=== PATIENT | female | born 1985 | race Caucasian/White ===

== ENCOUNTER → 2018-10-24 | Outpatient (CLI) | payer OTHER ==
[~2018-10-24] MED LIST: ACEBUTCAFT PO; BIRTH CONTROL; CYCL10 PO; DOXY100 PO; FAMO20 PO; HYDACE5 PO; HYDMOR2 PO; LOPE2C PO; NAPR500 PO; OMEP20ER PO; ORTHOTRICYCLINE; OXYACE5T PO; PROACE100 PO; PROC5 PO; PROM25 PO; PROP10 PO; RANI150 PO; RXHYDMOR2 PO; RXTRAM50 PO; VICODIN
== END | disposition home or self-care (01) ==
LOC: LAB SHORT 17:27 → LAB 17:27
DX: R30.0 Dysuria (principal)
CPT/HCPCS: 87086

== ENCOUNTER → 2018-11-07 | Outpatient (CLI) | payer OTHER ==
[2018-11-09 15:06] LABS: HPV 16 Negative (Negative); HPV 18 Negative (Negative); HPV OTHER HR TYPES Negative (Negative)
== END | disposition home or self-care (01) ==
LOC: LAB SHORT 17:43 → LAB 17:43
PROVIDERS: Nurse Practitioner Family
DX: Z12.4 Encounter for screening for malignant neoplasm of cervix (principal); R30.0 Dysuria
CPT/HCPCS: 87086

== ENCOUNTER 2021-02-01 10:01 | Inpatient (IN) | payer OTHER ==
[~2021-02-01] VITALS: Ht 167.6 cm; Wt 137.0 kg
[2021-02-01 11:03] LABS: Hematocrit 43.1 % (33.0-51.0); Hemoglobin 13.4 g/dL (11.5-16.0); Mean Corpuscular HGB 24.9 pg (26.0-34.0); Mean Corpuscular HGB Conc 31.1 g/dL (31.5-36.5); Mean Corpuscular Volume 80 fL (80-100); Mean Platelet Volume 9.6 fL (9.1-12.4); Platelet Count 293 K/mm3 (150-400); RDW Coefficient Variation 13.5 % (11.7-14.2); Red Blood Cell Count 5.39 M/mm3 (3.80-5.20); White Blood Cell Count 5.62 K/mm3 (4.00-11.30)
[2021-02-01] MEDS ORDERED: Ventolin/Prove6.7 GM INH (11:24)
[2021-02-01 11:34] LABS: BAND PERCENT MAN 6 % (0-8); BASOPHILS PERCENT MAN 0 % (0-2); EOSINOPHILS PERCENT MAN 0 % (0-6); LYMPHOCYTES % ATYPICAL MANUAL 2 % (0-0); LYMPHOCYTES ABSOLUTE MAN 0.67 K/mm3 (0.84-5.20); LYMPHOCYTES PERCENT MAN 10 % (21-46); METAMYELOCYTE ABSOLUTE MAN 0.05 K/mm3 (0.00-0.00); METAMYELOCYTE PERCENT MAN 1 % (0-0); MONOCYTES PERCENT MAN 9 % (4-13); NEUTROPHILS ABSOLUTE MAN 4.38 K/mm3 (1.96-9.15); SEG NEUTROPHILS PERCENT MAN 72 % (41-73); TOTAL CELLS COUNTED 100
[2021-02-01 12:41] LABS: Alanine Aminotransfer (ALT/SGP 35 U/L (12-78); Albumin, Blood 3.1 g/dL (3.4-5.0); Albumin/Globulin Ratio 0.6 (0.8-1.8); Alk Phos 83 U/L (50-136); Anion Gap 4 mmol/L (6-16); Aspartate Aminotrans (AST/SGOT 48 U/L (12-37); Bilirubin, Total 0.2 mg/dL (0.1-1.0); Blood Urea Nitrogen 12 mg/dL (8-24); Bun/Creatinine Ratio 16.5 (12.0-20.0); CO2, Blood 30 mmol/L (21-32); Calcium, Blood 8.6 mg/dL (8.5-10.1); Chloride, Blood 104 mmol/L (98-108); Creatinine, Blood 0.73 mg/dL (0.40-1.00); Globulin, Blood 4.8 g/dL (2.2-4.0); Glomerular Filtration Rate >60 (60-); Glucose, Blood 115 mg/dL (70-99); Potassium, Blood 3.6 mmol/L (3.5-5.5); Sodium, Blood 138 mmol/L (136-145); Total Protein, Blood 7.9 g/dL (6.4-8.2); Troponin I <0.015 ng/mL (0.000-0.040)
[2021-02-02] MEDS ORDERED: IBUP800 PO (01:43)
[2021-02-02] MEDS ORDERED: Guaifenesin Wit10 ML PO (01:45)
[2021-02-02 05:20] LABS: BASOPHILS ABSOLUTE AUTO 0.01 K/mm3 (0.00-0.23); BASOPHILS PERCENT AUTO 0 % (0-2); EOSINOPHILS PERCENT AUTO 0 % (0-6); Hematocrit 37.4 % (33.0-51.0); Hemoglobin 11.7 g/dL (11.5-16.0); Mean Corpuscular HGB 25.5 pg (26.0-34.0); Mean Corpuscular HGB Conc 31.3 g/dL (31.5-36.5); Mean Corpuscular Volume 82 fL (80-100); Mean Platelet Volume 9.4 fL (9.1-12.4); Platelet Count 244 K/mm3 (150-400); RDW Coefficient Variation 13.7 % (11.7-14.2); Red Blood Cell Count 4.59 M/mm3 (3.80-5.20); White Blood Cell Count 4.33 K/mm3 (4.00-11.30)
[2021-02-02 05:42] LABS: Alanine Aminotransfer (ALT/SGP 38 U/L (12-78); Albumin, Blood 2.6 g/dL (3.4-5.0); Albumin/Globulin Ratio 0.6 (0.8-1.8); Alk Phos 70 U/L (50-136); Anion Gap 3 mmol/L (6-16); Aspartate Aminotrans (AST/SGOT 38 U/L (12-37); Bilirubin, Total 0.2 mg/dL (0.1-1.0); Blood Urea Nitrogen 16 mg/dL (8-24); Bun/Creatinine Ratio 23.3 (12.0-20.0); CO2, Blood 33 mmol/L (21-32); Calcium, Blood 8.1 mg/dL (8.5-10.1); Chloride, Blood 104 mmol/L (98-108); Creatinine, Blood 0.69 mg/dL (0.40-1.00); Globulin, Blood 4.3 g/dL (2.2-4.0); Glomerular Filtration Rate >60 (60-); Glucose, Blood 109 mg/dL (70-99); Magnesium, Blood 2.2 mg/dL (1.6-2.4); Potassium, Blood 3.6 mmol/L (3.5-5.5); Sodium, Blood 140 mmol/L (136-145); Total Protein, Blood 6.9 g/dL (6.4-8.2)
[2021-02-02 05:52] LABS: IMMATURE GRAN ABSOLUTE AUTO 0.01 K/mm3 (0.00-0.10); IMMATURE GRAN PERCENT AUTO 0 % (0-1); LYMPHOCYTES ABSOLUTE AUTO 1.13 K/mm3 (0.84-5.20); LYMPHOCYTES PERCENT AUTO 26 % (21-46); MONOCYTES ABSOLUTE AUTO 0.47 K/mm3 (0.16-1.47); MONOCYTES PERCENT AUTO 11 % (4-13); NEUTROPHILS ABSOLUTE AUTO 2.71 K/mm3 (1.96-9.15); NEUTROPHILS PERCENT AUTO 63 % (41-73)
--- NOTE | 2021-02-02 06:40 | NUR ---
SHIFT SUMMARY- PT. NEW ADMIT FROM ED. COVID POS, A&OX4, SBA TO BSC. PT. ON 2L NC, SATS WNL. C/O JAIME AND NA DURING THE NIGHT, MEDICATED PER EMAR WITH GOOD EFFECT. PT. RESTED QUIETLY T/O THE NIGHT, NO APPARENT DISTRESS NOTED. CALL LIGHT WITHIN REACH AND SIDE RAILS UPX2. WILL CONT TO MONITOR.
--- NOTE | 2021-02-02 16:40 | NUR ---
Shift Summary A/Ox4, pleasant and cooperative with care. O2 needs increased from 2L at start of shift to 4L, maintaining between 89-92%. Desats to 87-88% with activity to bedside commode. C/O back pain from sciatica, reports was prescribed oxycodone but did not have chance to pickle cutter from pharmacy. Discussed with Dr. Turner, order received. Medicated for generalized achy pain and back pain per EMAR. Poor appetite. Calls for needs appropriately. LR @ 75. S/P day 2 of remdesevir. Breathing unlabored at this time. WCTM.
--- NOTE | 2021-02-03 03:24 | NUR ---
PT DESATURATED PT'S O2 SAT DROPPED TO MID 80'S %. SHE WAS NOT MOVING OR DOING ANY ACTIVITY. I DID CALL RESPIRATORY THERAPY FOR ASSISTANCE. AT 10 LPM HIGH FLOW O2, SHE IS MAINTAINING 91% SATURATION.
--- NOTE | 2021-02-03 04:12 | NUR ---
SHIFT SUMMARY ADMITTED FOR COVID+. FULL CODE. SHE DESATURATED ONE TIME THIS SHIFT, SEE PREVIOUS NOTE. SHE IS NOW ON 10 LPM HIGH FLOW O2 VIA NC. SHE STATES SHE HAS CHRONIC BACK PAIN/SCIATICA, AND SHE ALSO STATES THAT COVID HAS MADE HER HURT "EVERYWHERE". SHE HAS BEEN RUNNING LOW GRADE FEVERS THIS SHIFT AND THE PREVIOUS SHIFT. REMDESIVIR AND DECADRON ARE SCHEDULED. TELEMETRY: NSR @ 82 BPM. LR INFUSING @ 75 ML/HR. SHE IS A&O X4. 1 ASSIST TO BSC, BUT SHE IS REFUSING TO GET UP THIS SHIFT. 1 EPISODE OF URINE INCONTINENCE THIS SHIFT (DUE TO COUGHING). PO PAIN MEDICATION AVAILABLE Q 6, I DID MEDICATE HER FOR PAIN THIS SHIFT.
[2021-02-03 08:50] LABS: C-REACTIVE PROTEIN, EXT RANGE 3.31 mg/dL (0.000-0.300)
--- NOTE | 2021-02-03 16:34 | NUR ---
PT CONT TO STRUGGLE MAINTAINGING SATS ABOVE 90 TODAY. RT IN MX TIMES TO INCREASE O2, STARTED ON AIRVOW AND THEN BIPAIP. PT HAS BEEN COOPERATIVE WITH ADL'S AND WORKING WITH RT TO COUGH AND DEEP BREATH, CHANGE POSITIONS FREQUENTLY AND BEEN UP AND DOWN TO BSC IND TODAY. PT CONT TO DESAT INTO LOW 80'S FREQUENTLY AND C/O INCREASED SOB. MD NOTIFIED AND ORDERS RECIEVED TO TRANSFER PT TO ICU. IS AT BEDSIDE.
[2021-02-03 17:04] LABS: PCO2 Arterial 54 mmHg (35-45); PO2 Arterial 59.2 mmHg (80-100); pH Blood Arterial 7.43 (7.35-7.45)
--- NOTE | 2021-02-03 17:36 | NUR ---
SHIFT SUMMARY- PT CONT TO STRUGGLE MAINTAINING O2 SATURATIONS >90. RT IN MX TIMES TODAY TO ASSESS AND ASSIST. PT MOVED FROM 10L HIGH FLOW 02 VIA N/C TO 15L NRB, TO AIRVO MAX 02 WITH SATS REMAINING IN 80'S AND DROPPING FREQUENTLY. RT THEN PLACED PT ON BIPAP. PT WAS COOPERATING T/O THE DAY WITH ADL'S, COUGH AND DEEP BREATHING EXCERSIZE AND GETTING UP TO BSC WITH SAT DROPPING TO LOW 80'S. PT DID START COUGHING UP THICK BLOOD TINGED SECRETIONS AND MD WAS NOTIFIED. IV ABX GIVEN AND SPUTUM SAMPLE REQUESTED AND SAMPLE CUP PROVIDED TO PT FOR COLLECTION. PT C/O 9/10 HEADACHE THAT DID IMPROVE SLIGHTLY WITH PRN PAIN MEDS. PT CONT TO C/O SOB AND ATTEMPTING REPOSITIONING FREQUENTLY. PRONE POSITION SEEMED TO HELP MOST WITH SATS BUT PT DID NOT TOLERATED FOR VERY LONG. UPDATED AND NEW ORDERS REVIEVED TO TRANSFER PT TO ICU WHEN BED AVAILABLE FOR RESPIRATORY SUPPORT. PT'S WAS REQUESTED BY MD TO SIT WITH PT AT BEDSIDE FOR ENCOURAGEMENT AND COMFORT. NOTIFIED THAT BED AVAILABLE IN ICU FOR PT AND PLANS TO TRANSFER TO ICU-3 WHEN ROOM CLEANED AND REPORT CALLED.
--- NOTE | 2021-02-03 18:04 | NUR ---
REPORT CALLED TO KEVIN CAGLE IN ICU, WAITING FOR RM TO BE CLEANED.
--- NOTE | 2021-02-03 20:24 | NUR ---
ASSUMED CARE/ARRIVED TO ICU3 PATIENT ARRIVED FROM MEDICAL FLOOR TO ICU3 WITH BIPAP IN PLACE AT 50LPM 90% FIO2. CELL PHONE AND VENETIAN BLIND WASHER ARE WITH PATIENT AND TWO BAGS OF PERSONAL BELONGINGS. CHEN FROM PREVIOUS ROOM WERE BROUGHT DOWN AND FAMILY WERE NOTFIED TO PICK THOSE UP. 20G IV PATENT AND SL TO RT AC; UPON ARRIVAL 18G IV STARTED TO LT FOREARM. PATIENT IS A&O X 4 AND ASKS APPROPRIATE QUESTIONS REGARDING CARE. PATIENT IS CONTINENT OF URINE WITH USE OF BEDPAN. EDUCATED ON BED CONTROLS AND CALL LIGHT. WILL CONTINUE TO MONITOR.
--- NOTE | 2021-02-04 00:43 | NUR ---
CALL TO MD CALL TO DR ZIMMERMAN REGARDING SPO2 DOWN TO MID 80's. PT C/O NAUSEA, MED WITH ZOFRAN, BUT CONT TO HAVE NAUSEA. UNABLE TO USE BIPAP DUE TO NAUSEA. PT C/O RIGHT LOWER QUAD ABD PAIN. RECEIVED ORDER FOR FENTANYL AND PRECEDEX GTT. RT AT BEDSIDE PT ON NRB AT 15 LITERS.
[2021-02-04 01:12] LABS: Source, Urine Catheter
[2021-02-04 01:22] LABS: Bilirubin, Urine Neg (Neg); Blood, Urine 1+ (Neg); Glucose Qualitative, Urine Neg (Neg); Ketones, Urine 3+ (Neg); Leukocyte Esterase, Urine Neg (Neg); Nitrite, Urine Neg (Neg); Protein, Urine 2+ (Neg); Specific Gravity, Urine 1.025 (1.003-1.022); Urobilinogen, Urine NORM (Normal)
[2021-02-04 01:30] LABS: Amorphous Light (0-Heavy); Appearance, Urine Hazy (Clear); Bacteria Few /hpf; Color, Urine Yellow (P-Yellow); Mucus Mod (0-Heavy); Red Blood Cells, Urine 0-2 /hpf (0-2); Squamous Epithelial Cells Rare /hpf (Few)
[2021-02-04 03:55] LABS: BASOPHILS ABSOLUTE AUTO 0.01 K/mm3 (0.00-0.23); BASOPHILS PERCENT AUTO 0 % (0-2); EOSINOPHILS PERCENT AUTO 0 % (0-6); Hematocrit 37.5 % (33.0-51.0); Hemoglobin 11.6 g/dL (11.5-16.0); IMMATURE GRAN ABSOLUTE AUTO 0.04 K/mm3 (0.00-0.10); IMMATURE GRAN PERCENT AUTO 1 % (0-1); LYMPHOCYTES ABSOLUTE AUTO 1.17 K/mm3 (0.84-5.20); LYMPHOCYTES PERCENT AUTO 20 % (21-46); MONOCYTES ABSOLUTE AUTO 0.37 K/mm3 (0.16-1.47); MONOCYTES PERCENT AUTO 6 % (4-13); Mean Corpuscular HGB Conc 30.9 g/dL (31.5-36.5); Mean Corpuscular Volume 81 fL (80-100); Mean Platelet Volume 9.2 fL (9.1-12.4); NEUTROPHILS ABSOLUTE AUTO 4.38 K/mm3 (1.96-9.15); NEUTROPHILS PERCENT AUTO 73 % (41-73); Platelet Count 268 K/mm3 (150-400); RDW Coefficient Variation 13.5 % (11.7-14.2); RDW Standard Deviation 39.4 fL (35.1-46.3); Red Blood Cell Count 4.64 M/mm3 (3.80-5.20); White Blood Cell Count 5.97 K/mm3 (4.00-11.30)
[2021-02-04 04:19] LABS: Albumin, Blood 2.4 g/dL (3.4-5.0); Anion Gap 4 mmol/L (6-16); Blood Urea Nitrogen 12 mg/dL (8-24); Bun/Creatinine Ratio 20.5 (12.0-20.0); CO2, Blood 34 mmol/L (21-32); Calcium, Blood 8.6 mg/dL (8.5-10.1); Chloride, Blood 99 mmol/L (98-108); Creatinine, Blood 0.58 mg/dL (0.40-1.00); Glomerular Filtration Rate >60 (60-); Glucose, Blood 114 mg/dL (70-99); Magnesium, Blood 2.2 mg/dL (1.6-2.4); Phosphorus, Blood 3.1 mg/dL (2.5-4.9); Potassium, Blood 3.2 mmol/L (3.5-5.5); Sodium, Blood 137 mmol/L (136-145)
--- NOTE | 2021-02-04 06:05 | NUR ---
SHIFT SUMMARY PATIENT ARRIVED TO ICU ON AIRVO AND TOLERATED WELL UNTIL REPOSITIONED ONTO HER RT SIDE CAUSING HER TO DESAT INTO THE 80'S UNTIL PLACED ON CPAP. PATIENT REMAINED ON BIPAP THROUGHOUT THE NIGHT WITH GRADUAL WEAN OF FIO2 FROM 100% TO 80% AND SPO2 >95%; PRESSURE MAINTAINED AT 14. PATIENT EXPERIENCED NAUSEA AND RLQ PN NOT RELIEVED BY REGLAN OR ZOFRAN IV; STARTED PRECEDEX GTT @ 0.4MCG/KG/HR AND FENTANYL FOR PAIN. PATIENT TOLERATED WELL AND SLEPT FOR MOST OF THE NIGHT EXCEPT FOR WHEN PAIN OR NAUSEA BEGAN TO INCREASE. PATIENT MADE APPROPRIATE USE OF THE CALL LIGHT TO MAKE NEEDS KNOWN. D/T INCREASED WEAKNESS AND DESATS WITH REPOSITIONING, TEMP PISANO PLACED; PATENT AND DRAINING TO GRAVITY. WILL CONTINUE TO MONITOR UNTIL REPORT GIVEN TO ONCOMING RN.
--- NOTE | 2021-02-04 07:30 | NUR ---
ASSUMED CARE: PT RESTING WITH CPAP AT 14 AND FIO2 80%. PRECEDEX GTT AT 0.4 MCG. PT ALERT AND ORIENTED, COOPERATIVE. PISANO CATH IN PLACE WITH CLEAR YELLOW URINE. CALL LIGHT IN REACH. NO ACUTE NEEDS OR CONCERNS AT THIS TIME.
--- NOTE | 2021-02-04 10:37 | NUR ---
PT'S RESPIRATIONS ARE IN 30S TO 40S ON CPAP. RT ADJUSTED SETTINGS TO 12/6 AND 80% FIO2. HAS BEEN CONTACTED AND GIVEN UPDATE ON STATUS. PUBLIC WORKS LABORER APPROVED TO COME VISIT EARLY GIVEN CIRCUMSTANCES.
--- NOTE | 2021-02-04 11:17 | NUR ---
SPOKE WITH DR ZIMMERMAN REGARDING PT. AWARE THAT WE HAVE SWITCHED PT TO BIPAP AND SHE IS STILL WORKING HARD WITH RESPIRATIONS IN 30S TO 40S. DR INSTRUCTED RT TO INCREASE PRESSURE. HAD DISCUSSION WITH PT'S REGARDING PROGNOSIS AND STATED THAT IT IS LIKELY WE WILL HAVE TO INTUBATE HER. ASKED ABOUT IVERMECTIN AND EXPLAINED HIS THOUGHTS ON THIS. PT'S AT BEDSIDE WITH LIFE ENRICHMENT ASSISTANT AT THIS TIME.
--- NOTE | 2021-02-04 11:56 | NUR ---
pt anxious and nauseated from headache unable to maintain sats. Huaband at bedside and is struggling with plan of care. plan is to intubate. will follow for symptom managment and potential for long hauler care in future with her asthma nd high bmi.
--- NOTE | 2021-02-04 12:30 | NUR ---
PT'S AT BEDSIDE SPEAKING WITH SUPERVISOR WOOD ROOM. HE WANTED TO KNOW IF OTHER MEDS COULD BE USED AND WANTED TO TRY THOSE BEFORE WE INTUBATE. EXPLAINED TO HIM WITH PT'S HEMODYNAMICS AND WORK OF BREATHING, PT PROBABLY DID NOT HAVE THAT KIND OF TIME. PT WAS BREATHING 40S/MINUTE, SAT IN 80S AND FIO2 WAS AT 100% WITH BIPAP OF 16/8. PT'S SPOKE WITH , GAVE HER A HUG AND STEPPED ASIDE FOR STAFF TO START INTUBATION. AT 12O2 PT WAS GIVEN 50MG PROPOFOL FOR SEDATION. ANOTHER 50MG WAS GIVEN AT 1203. 100MG SUCCINYLCHOLINE GIVEN AT 1204 FOR PARALYTIC. ANOTHER 50MG PROPOFOL GIVEN AFTER THIS. INTUBATION COMPLETED AT 1205 WITH A 8.0 TUBE, 24 AT TEETH. PROPOFOL GTT STARTED AT 40MCG. PT CONTINUED TO BE COUGHING AGAINST VENT AND 100MG SUCC GIVEN. PT NOT MAINTAINING SATURATION, SAT 56%, BAGGING. BP LOW WITH SYSTOLIC IN 70S SO BOLUS OF NS GIVEN. OG TUBE PLACED WITH GLIDOSCOPE ASSISTANCE. PT CONTINUES TO STRUGGLE AGAINST VENT SO 100 MCG FENTANYL AND 2MG ATIVAN GIVEN. AT 1221 PT WAS 82% AND BAGGING. PT'S HR BECAME TACYCARDIC IN THE 150S. ORDERED NIMBEX GTT TO BE STARTED. RT AT BEDSIDE ADJUSTING VENT SETTINGS. COUGHING AGAINST VENT SO ANOTHER 50MG PROPOFOL GIVEN.
[2021-02-04 12:50] LABS: PCO2 Arterial 56.4 mmHg (35-45); PO2 Arterial 62.1 mmHg (80-100); pH Blood Arterial 7.38 (7.35-7.45)
--- NOTE | 2021-02-04 13:15 | NUR ---
Patient is lying in bed and struggling to breath. Her SO, Jacky is bedside and is angry he raises his voice and states his frustration about a certain medication not being given. Jacky states that he has a relative lodged at another hospital and was administered this certain medication and showed improvement. He talks about calling an ambulance and having her transferred to another facility who will allow this medication. I provide therapeutic listening and provide Jacky with options. I provide prayer for the patient as well. KEVIN Dominguez, Dr. Mondragon and myself calm Jacky down and he decides intubation is permissible. I stay with patient and Jacky while intubation is being installed providing a calming presence, distracting peaceful conversation and companionship. Jacky exits the rm when intubation is complete. I will continue to remain available to patient and family.
--- NOTE | 2021-02-04 15:30 | NUR ---
SUPERVISOR LEAF SPRING REPAIR AT BEDSIDE PLACING PICC LINE. PICC LINE CLOTTED OFF TWICE BUT WAS EVENTUALLY SUCCESSFUL WITH XRAY CONFIRMATION. DISCUSSED WITH DR ZIMMERMAN PT'S CLOTTING WELL DURING INTUBATION PT'S NOTED PT TO BE BLEEDING FROM TORI AREA. UPON FURTHER EXAMINATION, THIS APPEARED TO BE VAGINAL. STATES SHE HAD MENSES AT BEGINNING OF MONTH. RT NOTED BLOODY SPUTUM WITH SUCTION. DR ZIMMERMAN AND DEMOND AWARE OF THIS AND ORDERING COAGULATION STUDIES. PT'S HR REMAINS INCREASED AND BLOOD PRESSURE ELEVATED. DISCUSSED WITH DR ZIMMERMAN WHO ORDERED FENTANYL BOLUS AND FENTANYL GTT. PT PRONED WITH RT AND MULTIPLE STAFF ASSISTANCE AT 1500. PT NOW PRONED WITH VENT SETTINGS AC 24/450/15/80%. PRECEDEX GTT AT 1.4MCG/KG. PROPOFOL AT 60MCG/KG. FENTANYL GTT AT 50MCG/HR. BIS MONITOR READING LOW 30S. TOF 4/4. LR RUNNING AT 150/HR. OG IN PLACE WITH BILE AND CLAMPED. RESTRAINTS OFF. NO ACUTE NEEDS AT THIS TIME.
--- NOTE | 2021-02-04 18:45 | NUR ---
SHIFT SUMMARY: PT INTUBATED AND SEDATED. VENT SETTINGS AC 24/450/15/60%. PROPOFOL GTT AT 50MCG/KG. NIMBEX AT 1MCG/KG. FENTANYL GTT AT 50MCG/HR. BIS MONITOR BETWEEN 30 AND 40. TOF 4/4. PRONED AT THIS TIME. AWARE OF PT'S STATUS. PT'S MOTHER HAS BEEN UPDATED WELL. PISANO CATH IN PLACE AND OG TUBE CLAMPED. NO ACUTE NEEDS AT THIS TIME.
--- NOTE | 2021-02-04 23:20 | NUR ---
[facility] PATIENT LYING IN BED PRONED; INTUBATED AND SEDATED ON PROPOFOL @ 50MCG/KG/MIN WITH NIMBEX INF @ 1MCG/KG/MIN; NS @ 20ML/HR, FENTANYL GTT @ 50MCG/HR, AND LR @ 150ML/HR. PATIENT IS TOLERATING VENT WELL ON AC/VC 24/450/15/60% WITH SPO2 > 90%. OGT IN PLACE AND CLAMPED WITH GREEN DRAINAGE IN TUBING. PRECEDEX IS OFF AND NOT AT BEDSIDE AT THIS TIME. WILL CONTINUE TO MONITOR THROUGHOUT SHIFT.
[2021-02-05 04:13] LABS: BASOPHILS PERCENT AUTO 0 % (0-2); EOSINOPHILS PERCENT AUTO 0 % (0-6); Hematocrit 30.9 % (33.0-51.0); IMMATURE GRAN ABSOLUTE AUTO 0.06 K/mm3 (0.00-0.10); IMMATURE GRAN PERCENT AUTO 1 % (0-1); LYMPHOCYTES ABSOLUTE AUTO 0.93 K/mm3 (0.84-5.20); LYMPHOCYTES PERCENT AUTO 13 % (21-46); MONOCYTES ABSOLUTE AUTO 0.45 K/mm3 (0.16-1.47); MONOCYTES PERCENT AUTO 6 % (4-13); Mean Corpuscular HGB 25.4 pg (26.0-34.0); Mean Corpuscular HGB Conc 32.4 g/dL (31.5-36.5); Mean Corpuscular Volume 79 fL (80-100); Mean Platelet Volume 9.4 fL (9.1-12.4); NEUTROPHILS ABSOLUTE AUTO 5.76 K/mm3 (1.96-9.15); NEUTROPHILS PERCENT AUTO 80 % (41-73); Platelet Count 302 K/mm3 (150-400); RDW Coefficient Variation 13.3 % (11.7-14.2); RDW Standard Deviation 38.5 fL (35.1-46.3); Red Blood Cell Count 3.93 M/mm3 (3.80-5.20)
[2021-02-05 04:30] LABS: Anion Gap 6 mmol/L (6-16); Blood Urea Nitrogen 10 mg/dL (8-24); Bun/Creatinine Ratio 16.9 (12.0-20.0); CO2, Blood 31 mmol/L (21-32); Calcium, Blood 8.1 mg/dL (8.5-10.1); Chloride, Blood 103 mmol/L (98-108); Creatinine, Blood 0.59 mg/dL (0.40-1.00); Glomerular Filtration Rate >60 (60-); Glucose, Blood 128 mg/dL (70-99); International Normalized Ratio 1.08; Magnesium, Blood 2.4 mg/dL (1.6-2.4); Prothrombin Time Results 11.6 Sec (9.7-11.5); Sodium, Blood 140 mmol/L (136-145)
[2021-02-05 04:44] LABS: PCO2 Arterial 37.8 mmHg (35-45); PO2 Arterial 66.3 mmHg (80-100); pH Blood Arterial 7.54 (7.35-7.45)
--- NOTE | 2021-02-05 06:12 | NUR ---
SHIFT SUMMARY PATIENT REMAINED PRONED THROUGHOUT SHIFT; INTUBATED AND SEDATED WITH PROPOFOL @ 50MCG/KG/MIN, NIMBEX @ 2MCG/KG/MIN, AND FENTANYL GTT 50MCG/HR. LR INF @ 150ML/HR AND NS @ 20ML/HR. PATIENT TOLERATED VENT WELL ON VC 24/450/15/45% WITH SPO2>90%. TEMP PISANO PATENT AND DRAINING. TEMP DECREASED FROM 102.2 TO 99'SF. IV TO RT AC PATENT AND SL. AM LABS SHOWED LOW POTASSIUM AND PHOS; KPHOS STARTED AND AWAITING NAPHOS FROM PHARMACY. TOLERATED Q2H TURNS WELL.
--- NOTE | 2021-02-05 07:30 | NUR ---
ASSUMED CARE: PT INTUBATED, SEDATED AND PARALYZED. PROPOFOL AT 50MCG/KG. NIMBEX AT 2MCG/KG. TOF 0/4. BIS 40-60. VENT SETTINGS AC 24/450/15/40%. OG IN PLACE AND CLAMPED WITH BROWN/GREEN DRAINAGE. PISANO IN PLACE WITH CLEAR YELLOW DRAINAGE. PLAN IS TO SUPINATE PT WHEN STAFF AVAILABLE. [facility] PLANNING TO CONSULT OTHER HOSPITAL FOR POSSIBILITY OF ECMO WHEN PT HAS PRONED FOR 16 HOURS. NO ACUTE NEEDS AT THIS TIME.
--- NOTE | 2021-02-05 11:47 | NUR ---
DR KELLY CAME IN TO SEE PT AND WAS MADE AWARE OF PT'S DRIPS AND SETTINGS WELL HYPERTENSION. DR INSTRUCTED TO DC IV FLUIDS AT THIS TIME. STATED AT THIS TIME PT'S SETTINGS ARE WHAT CAN BE MANAGED HERE. CALL TO PT'S TO GIVE HIM AN UPDATE. LET HIM KNOW THAT SHE DOES NOT NEED TRANSFER AT THIS TIME. LET KNOW THAT SHE IS STABLE BUT IS STILL REQUIRING A LOT OF SEDATION AND A LOT OF ASSISTANCE WITH VENTILATOR BUT SETTINGS ARE IMPROVED COMPARED TO YESTERDAY. PT'S DENIED FURTHER QUESTIONS AT THIS TIME.
--- NOTE | 2021-02-05 15:26 | NUR ---
SPOKE TO DR KINNEY REGARDING PT'S CONTINUED HYPERTENSION. STATES SHE IS ENTERING ORDERS
--- NOTE | 2021-02-05 18:26 | NUR ---
Review of pt this morning with nursing and progress. Rview of patients past medical care and symptoms. suggest test. pt may need additional care and monitoring due to homone therapy. Will follow after extubation for prison care plan and support.
--- NOTE | 2021-02-05 19:00 | NUR ---
ASSUMED CARE ASSUMED CARE OF PATIENT. REMAINS INTUBATED- AC 24, TV 450, PEEP 13, FIO2 40%. RR 24. SEDATED WITH PROPOFOL AT 30MCG/KG/MIN AND PRECEDEX AT 0.4MCG/KG/HR. FENTANYL GTT AT 50MCG/HR FOR SEDATION ADJUNCT AND COMFORT. BIS 38-42. NIMBEX AT 2MCG/KG/MIN. NO SPONTANEOUS MOVEMENT NOTED AT THIS TIME. MONITOR SHOWS NSR, RATE 70s. SBP 180s. TEMP 100.4F PER PISANO TEMP PROBE. OG WITH VITAL HIGH PROTEIN AT GOAL RATE OF 20CC/HR. PISANO PATENT AND DRAINING CLEAR YELLOW URINE. PT IS PRONED. PELON PICC NOTED. SEE SHIFT ASSESSMENT FOR FULL ASSESSMENT.
--- NOTE | 2021-02-05 19:23 | NUR ---
SHIFT SUMMARY: PT HAS BEEN HYPERTENSIVE ALL SHIFT. SPOKE WITH DR KELLY WHO ORDERED FURTHER MEDS THAT WILL BE GIVEN THIS EVENING. TEMP OF 100.6 TREATED WITH PT TYLENOL. VENT SETTINGS ADJUSTED T/O DAY. CURRENT SETTINGS AC 24/450/13/40%. CURRENTLY ON PROPOFOL OF 30MCG, PRECEDEX 0.4MCG, FENTANYL GTT, NIMBEX AT 2 MCG WITH TOF OF 4/4 AND BIS OF 30S-40S. TF STARTED PER ORDERS. PISANO IN PLACE WITH GOOD URINE OUTPUT. GIVEN UPDATE THIS SHIFT.
[2021-02-06 05:33] LABS: Hematocrit 33.1 % (33.0-51.0); Hemoglobin 10.4 g/dL (11.5-16.0); Mean Corpuscular HGB Conc 31.4 g/dL (31.5-36.5); Mean Corpuscular Volume 80 fL (80-100); Mean Platelet Volume 9.7 fL (9.1-12.4); Platelet Count 376 K/mm3 (150-400); RDW Coefficient Variation 13.8 % (11.7-14.2); RDW Standard Deviation 40.2 fL (35.1-46.3); Red Blood Cell Count 4.16 M/mm3 (3.80-5.20); White Blood Cell Count 9.01 K/mm3 (4.00-11.30)
[2021-02-06 05:52] LABS: Albumin, Blood 2.1 g/dL (3.4-5.0); Anion Gap 6 mmol/L (6-16); Blood Urea Nitrogen 10 mg/dL (8-24); Bun/Creatinine Ratio 17.6 (12.0-20.0); CO2, Blood 30 mmol/L (21-32); Calcium, Blood 7.9 mg/dL (8.5-10.1); Chloride, Blood 105 mmol/L (98-108); Creatinine, Blood 0.57 mg/dL (0.40-1.00); Glomerular Filtration Rate >60 (60-); Glucose, Blood 156 mg/dL (70-99); Phosphorus, Blood 2.4 mg/dL (2.5-4.9); Potassium, Blood 3.3 mmol/L (3.5-5.5); Sodium, Blood 141 mmol/L (136-145)
--- NOTE | 2021-02-06 06:28 | NUR ---
SHIFT SUMMARY NO ACUTE CHANGES DURING NOC. REMAINS INTUBATED- VENT SETTINGS UNCHANGED. SEDATED WITH PROPOFOL AT 40MCG/KG/MIN AND PRECEDEX AT 0.4MCG/KG/HR. FENTANYL AT 50MCG/HR. BIS BETWEEN 35-45, BUT IS DIFFICULT TO OBTAIN READING AT TIMES D/T PT BEING DIAPHORETIC. NIMBEX CONTINUES AT 2MCG/KG/MIN- TO4 2/4 THIS AM. TMAX 100.4F. SBP 140s-160s AFTER METOPROLOL GIVEN OG. HR 60s-70s. OG WITH VITAL HIGH PROTEIN AT GOAL RATE OF 20CC/HR. RESIDUALS <10CC. PISANO PATENT AND DRAINING TO GRAVITY. PT HAS BEEN PRONED T/O SHIFT WITH PLAN TO CHANGE TO SUPINE AT APPROXIMATELY 0900. WILL REPORT TO ONCOMING RN WHEN AVAILABLE.
[2021-02-06 06:34] LABS: BAND PERCENT MAN 3 % (0-8); BASOPHILS PERCENT MAN 0 % (0-2); EOSINOPHILS PERCENT MAN 0 % (0-6); LYMPHOCYTES % ATYPICAL MANUAL 3 % (0-0); LYMPHOCYTES ABSOLUTE MAN 1.89 K/mm3 (0.84-5.20); LYMPHOCYTES PERCENT MAN 18 % (21-46); METAMYELOCYTE ABSOLUTE MAN 0.09 K/mm3 (0.00-0.00); METAMYELOCYTE PERCENT MAN 1 % (0-0); MONOCYTES ABSOLUTE MAN 0.18 K/mm3 (0.16-1.47); MONOCYTES PERCENT MAN 2 % (4-13); NEUTROPHILS ABSOLUTE MAN 6.84 K/mm3 (1.96-9.15); SEG NEUTROPHILS PERCENT MAN 73 % (41-73); TOTAL CELLS COUNTED 100
--- NOTE | 2021-02-06 08:00 | NUR ---
ASSUMPTION OF CARE RECEIVED REPORT FROM CEDRIC BROWN. ASSUMED CARE OF PATIENT. PATIENT SEDATED, PARALYZED AND VENTILATED. NIMBEX AT 2MCG/KG, FENTANYL AT 50MCG/HR, PROPOFOL AT 30MCG/KG/MIN. VENT SETTINGS AC 24/450/13/40% WITH SATS ABOVE 95%. TOF 2/4, TOLERATING VENTILATOR ON CONTROLLED WITH RESP AT 24, NO VENT ALARMS, BIS MONITORING 28-38. PATIENT CURRENTLY PRONED, WILL UNPRONE ORDERED. PISANO PATENT AND DRAINING, CLEAR YELLOW URINE. VITALS STABLE. WILL REVIEW ORDERS AND TREAT PRESCRIBED.
--- NOTE | 2021-02-06 12:16 | NUR ---
PRONING PATIENT REMAINS STABLE IN PRONE POSITION, WILL CONTINUE TO PRONE UNTIL ADEQUATE STAFF IS AVAILABLE TO SAFELY REPOSITION AND PLACE PATIENT SUPINE.
--- NOTE | 2021-02-06 13:16 | NUR ---
REPOSITIONING AND FIO2 PLACED PATIENT SUPINE FROM PRONE POSITION. PATIENT DESATS TO MID 80'S ON 40% FIO2, INCREASED FIO2 TO 50% AND THEN TO 55% WITH SATS AT 91%. WILL MONITOR PATIENT'S STATUS AND INCREASE FIO2 NEEDED.
--- NOTE | 2021-02-06 18:16 | NUR ---
SHIFT SUMMARY PATIENT INTUBATED, PARALYZED AND SEDATED. VENT SETTINGS AC 24/450/13/55, NIMBEX AT 2MCG/KG AND PROPOFOL AT 40MCG/KG/MIN, PRECEDEX AT 0.4MCG/KG/MIN AND FENTANYL AT 50MCG/HR. TOF 2/4, AND BIS 30-40'S THROUGHOUT SHIFT. PATIENT PRONED THROUGH MORNING, UNPRONED AT 1300, DESATS WHILE SUPINE AND FIO2 WAS INCREASED TO 55%. 02 SATS HAVE REMAINED ABOVE 95%. TF REMAIN AT GOAL WITH NO RESIDUALS. BED BATH WAS COMPLETED. URINE OUTPUT RESPONDED WELL TO LASIX WITH CLEAR, YELLOW URINE NOTED VIA PISANO CATHETER. WAS GIVEN UPDATE EARLIER IN THE DAY THERE WERE NO SPECIFIC EVENTS OR CHANGES SINCE YESTERDAY. CONTINUING TO MONITOR AND WILL REPORT TO ONCOMING RN.
--- NOTE | 2021-02-06 19:00 | NUR ---
ASSUMED CARE ASSUMED CARE OF PATIENT. REMAINS INTUBATED- ACVC 24/450/PEEP 13/FIO2 55%. RR 24. SEDATED WITH PROPOFOL AT 40MCG/KG/MIN AND PRECEDEX AT 0.4MCG/KG/HR. FENTANYL GTT AT 50MCG/HR FOR COMFORT AND A SEDATION ADJUNCT. NO SPONTANEOUS MOVEMENT NOTED AT THIS TIME. BIS MONITOR SHOWS 42. MONITOR SHOWS SB-SR, RATE 58-60s. SBP 150s. TEMP 99.3F VIA PISANO TEMP PROBE. OG WITH VITAL HIGH PROTEIN AT GOAL RATE OF 20CC/HR. PISANO PATENT AND DRAINING TO GRAVITY. SEE SHIFT ASSESSMENT FOR FULL ASSESSMENT.
--- NOTE | 2021-02-06 22:00 | NUR ---
FRAN DISCUSSED PLAN TO PRONE PATIENT WITH DR. KELLY. D/T THE FACT THAT STAFF IS LIMITED AT THIS TIME AND THE PATIENT IS DOING WELL SUPINE, PLAN IS TO HOLD OFF ON PRONING PATIENT UNTIL THE AM.
[2021-02-07 04:11] LABS: Hematocrit 34.3 % (33.0-51.0); Hemoglobin 10.8 g/dL (11.5-16.0); Mean Corpuscular HGB 24.8 pg (26.0-34.0); Mean Corpuscular HGB Conc 31.5 g/dL (31.5-36.5); Mean Corpuscular Volume 79 fL (80-100); Mean Platelet Volume 9.5 fL (9.1-12.4); Platelet Count 424 K/mm3 (150-400); RDW Coefficient Variation 13.9 % (11.7-14.2); RDW Standard Deviation 39.6 fL (35.1-46.3); Red Blood Cell Count 4.35 M/mm3 (3.80-5.20); White Blood Cell Count 12.74 K/mm3 (4.00-11.30)
[2021-02-07 04:32] LABS: Anion Gap 6 mmol/L (6-16); Blood Urea Nitrogen 14 mg/dL (8-24); Bun/Creatinine Ratio 25.6 (12.0-20.0); CO2, Blood 30 mmol/L (21-32); Calcium, Blood 8.6 mg/dL (8.5-10.1); Chloride, Blood 103 mmol/L (98-108); Creatinine, Blood 0.55 mg/dL (0.40-1.00); Ferritin, Serum 271 ng/mL (8-252); Glomerular Filtration Rate >60 (60-); Glucose, Blood 145 mg/dL (70-99); Lactate Dehydrogenase (Ld),Bld 478 U/L (100-240); Magnesium, Blood 2.2 mg/dL (1.6-2.4); Phosphorus, Blood 3.2 mg/dL (2.5-4.9); Potassium, Blood 3.4 mmol/L (3.5-5.5); Sodium, Blood 139 mmol/L (136-145)
[2021-02-07 05:29] LABS: BASOPHILS PERCENT MAN 0 % (0-2); EOSINOPHILS PERCENT MAN 0 % (0-6); LYMPHOCYTES % ATYPICAL MANUAL 1 % (0-0); LYMPHOCYTES ABSOLUTE MAN 2.54 K/mm3 (0.84-5.20); LYMPHOCYTES PERCENT MAN 19 % (21-46); MONOCYTES ABSOLUTE MAN 0.12 K/mm3 (0.16-1.47); MONOCYTES PERCENT MAN 1 % (4-13); MYELOCYTE ABSOLUTE MAN 0.25 K/mm3 (0.00-0.00); MYELOCYTE PERCENT MAN 2 % (0-0); SEG NEUTROPHILS PERCENT MAN 77 % (41-73); TOTAL CELLS COUNTED 100
--- NOTE | 2021-02-07 06:31 | NUR ---
SHIFT SUMMARY NO ACUTE CHANGES DURING NOC. REMAINS INTUBATED- VENT SETTINGS UNCHANGED. PROPOFOL CONTINUES AT 40MCG/KG/MIN AND PRECEDEX AT 0.4MCG/KG/HR. BIS BETWEEN 35-45 T/O MOST OF SHIFT. OCCASIONALLY OPENS EYES WITH STIMULATION. NO OTHER SPONTANEOUS MOVEMENT NOTED. NIMBEX CONTINUES AT 2MCG/KG/MIN. T04 3/4 THIS AM. SBP 140-160s. HR 50s-60s. TMAX 100.OF. HIGH OG RESIDUALS EARLIER IN SHIFT- TUBE FEEDING OFF FOR SEVERAL HOURS. RESTARTED THIS AM AT GOAL RATE OF 20CC/HR. PISANO PATENT AND DRAINING TO GRAVITY. WILL REPORT TO ONCOMING RN WHEN AVAILABLE.
--- NOTE | 2021-02-07 07:50 | NUR ---
PT REMAINS INTUBATED, SEDATED, AND PARALYZED. PUPILS 3 MM AND EQUALLY REACTIVE TO LIGHT. TO4 4/4 WITH NIMBEX @ 2 MCG/KG/MIN. BIS 40'S WITH PROPOFOL @ 40 MCG/KG/MIN AND FENTANYL CONTINUOUS @ 50 MCG/HR. ECG SHOWS SR WITH RATE 60'S. TEMP 99.5, SKIN VERY DIAPHORETIC. LUNGS DIMINISHED THROUGH OUT AND COARSE TO RIGHT. ETT TO VENT:AC/VC-RR 24, TV 450, PEEP 13, FIO2 55%. MODERATE AMOUNT OF THICK, RIVERA ORAL SECRETIONS, BUT NO ETT SECRETIONS SUCTIONED. THE TONGUE HAS A SCAB ON THE TOP AND BOTTOM WHERE IT APPEARS THAT PT MAY HAVE BIT HER TONGUE. ETT REPOSITIONED SO NOT TO RUB ON THAT AREA AND FURTHER DAMAGE THE INTEGRITY. OGT PAUSED AFTER 500 CC RESIDUAL DISCARDED-PT MED WITH REGLAN-SEE EMAR. PISANO WITH MODERATE AMOUNT OF DARK, YELLOW URINE TO UROMETER. POTASSIUM REPLACEMENT INFUSING-SEE EMAR. ANTICIPATE POSSIBLE PRONING LATER THIS AM PER DR. KELLY ORDER DURING ROUNDS. ALSO, PT MAY BE CONSIDERED FOR ECMO TODAY. WILL DISCUSS WITH DR. KELLY DURING ROUNDS.
--- NOTE | 2021-02-07 10:15 | NUR ---
PT BATHED, LINEN CHANGE COMPLETED, AND THEN PLACED IN PRONE POSITION. TOLERATED WELL.-SATS 96% ON FIO2 55%.
--- NOTE | 2021-02-07 13:28 | NUR ---
PT HAS MAINTAINED SATS >90% ON PEEP 10/FIO2 55%. NIMBEX DRIP PLACED ON SB. PROPOFOL TITRATED UP TO 60 MCG/KG/MIN AND PRECEDEX TITRATED UP TO 0.7 MCG/KG/MIN. SOFT WRIST RESTRAINTS PLACED TO PREVENT ACCIDENTAL EXTUBATION/PULLING ON LINES AND TUBES.
--- NOTE | 2021-02-07 13:38 | NUR ---
NO RESIDUAL-PROTEIN PACKET GIVEN AND TF RESUMED AT PREVIOUS RATE 20 CC/HR.
--- NOTE | 2021-02-07 16:00 | NUR ---
PT FOLLOWING SOME SIMPLE COMMANDS. FOR EXAMPLE, PT SQUEEZED HER HANDS WHEN ASKED TO DO SO. PROPOFOL CONTINUES @ 75 MCG/KG/MIN, PRECEDEX @ 0.7 MCG/KG/MIN, AND FENTANYL CONTINUOUS @ 50 MCG/HR. PT REMAINS PRONE. SATS>90% ON FIO2 45% NOW TOLERATING OGTF WELL. PISANO WITH ADEQUATE AMOUNT OF GREEN URINE OUTPUT.
--- NOTE | 2021-02-07 17:31 | NUR ---
PT SPOUSE UPDATED TO CURRENT STATUS AND PLAN OF CARE.
--- NOTE | 2021-02-07 22:32 | NUR ---
ASSUMED CARE PATIENT LYING IN BED INTUBATED AND SEDATED ON PROPOFOL 75MCG/KG/MIN, FENTANYL @ 50MCG/HR AND PRECEDEX 0.7MCG/KG/HR; NIMBEX ON SB. NS AND LR INF @ 10ML/HR. PATIENT COMPLIANT WITH VENT AT VC 24/450/15/45% WITH SPO2 >90% AND RR @ 24. PATIENT NODS HEAD "YES/NO" TO SIMPLE QUESTIONS AND MAKES SMALL MOVEMENTS WITH ORAL CARE AND REPOSITIONING. PISANO PATENT AND DRAINING JAYLAN/CLEAR URINE. TF @ GOAL RATE OF 20ML/HR WITH 30ML WATER FLUSH Q4H. WILL CONTINUE TO MONITOR.
[2021-02-08 04:34] LABS: Hematocrit 35.1 % (33.0-51.0); Mean Corpuscular HGB 25.4 pg (26.0-34.0); Mean Corpuscular HGB Conc 31.3 g/dL (31.5-36.5); Mean Corpuscular Volume 81 fL (80-100); Mean Platelet Volume 9.8 fL (9.1-12.4); Platelet Count 440 K/mm3 (150-400); RDW Coefficient Variation 14.1 % (11.7-14.2); RDW Standard Deviation 41.1 fL (35.1-46.3); Red Blood Cell Count 4.33 M/mm3 (3.80-5.20); White Blood Cell Count 16.65 K/mm3 (4.00-11.30)
[2021-02-08 04:50] LABS: Anion Gap 6 mmol/L (6-16); Blood Urea Nitrogen 15 mg/dL (8-24); Bun/Creatinine Ratio 27.4 (12.0-20.0); CO2, Blood 30 mmol/L (21-32); Calcium, Blood 8.8 mg/dL (8.5-10.1); Chloride, Blood 103 mmol/L (98-108); Creatinine, Blood 0.55 mg/dL (0.40-1.00); Glomerular Filtration Rate >60 (60-); Glucose, Blood 169 mg/dL (70-99); Magnesium, Blood 2.1 mg/dL (1.6-2.4); Phosphorus, Blood 2.8 mg/dL (2.5-4.9); Potassium, Blood 3.3 mmol/L (3.5-5.5); Sodium, Blood 139 mmol/L (136-145)
[2021-02-08 05:12] LABS: BAND PERCENT MAN 2 % (0-8); BASOPHILS PERCENT MAN 0 % (0-2); EOSINOPHILS ABSOLUTE MAN 0.33 K/mm3 (0.00-0.68); EOSINOPHILS PERCENT MAN 2 % (0-6); LYMPHOCYTES ABSOLUTE MAN 1.66 K/mm3 (0.84-5.20); LYMPHOCYTES PERCENT MAN 10 % (21-46); MONOCYTES ABSOLUTE MAN 0.66 K/mm3 (0.16-1.47); MONOCYTES PERCENT MAN 4 % (4-13); NEUTROPHILS ABSOLUTE MAN 13.98 K/mm3 (1.96-9.15); SEG NEUTROPHILS PERCENT MAN 82 % (41-73); TOTAL CELLS COUNTED 100
--- NOTE | 2021-02-08 06:43 | NUR ---
SHIFT SUMMARY PATIENT REMAINED INTUBATED AND SEDATED ON PROPOFOL 75MCG/KG/MIN, PRECEDEX @ 0.7MCG/KG/HR, AND FENTANYL GTT @ 50MCG/MIN. NS AND LR INF @ 10ML/HR AND NIMBEX ON SB IN ROOM. PATIENT WAS COMPLIANT WITH VENT ON AC 24/450/10/45% THROUGHOUT SHIFT; TURNED DOWN TO 40% FIO2 BY RT THIS MORNING. PATIENT HAD EPISODES OF COUGHING FITS THAT WERE ABLE TO BE CONTROLLED WITH VERBAL COACHING AND FENTANYL 50MCG IV PUSH. PATIENT WAS ABLE TO NOD HEAD "YES/NO" TO SIMPLE QUESTIONS, LIFT HEAD/OPEN MOUTH TO HELP WITH CARE, AND OPEN EYES/SQUEEZE HANDS ON COMMAND. PATIENT WAS REPOSITIONED FROM PRONE TO SUPINE THIS MORNING @ 0330; WHICH SHE TOLERATED WELL. TF RESIDUALS WERE HIGH THIS SHIFT AT 400ML, THEN 250ML. TF RATE DECREASED FROM 20ML/HR TO 10ML/HR AND REGLAN ADMINISTERED IV TO PROMOTE GASTRIC MOTILITY. WILL CONTINUE TO MONITOR UNTIL HAND OFF TO ONCOMING RN.
--- NOTE | 2021-02-08 08:30 | NUR ---
ASSESSMENT- PT SEDATED WTIH PROPOFOL DECREASED TO 65 MCG/KG/MIN AND PRECEDEX GTT AT 0.7 MCG/KG/HR. ABLE TO AWAKEN TO NAME, OPENS EYES, ABLE TO NOD HEAD. DENIES PAIN OR SOB. TOLERATING VENT SETTINGS. ORALLY INTUBATED, TUBE SECURE. LUNGS CLEAR, DIMINISHED BASES. SUCTIONED SMALL AMOUNT CLEAR SECRETIONS. APICAL REGULAR, NSR. BP STABLE. ABDOMEN LARGE, SOFT. TUBE FEEDING VITAL HIGH PROTEIN AT 10 CC/HR, RESIDUAL 250 CC-REPLACED. UO VIA PISANO. BILATERAL WRIST RESTRAINTS FOR SAFETY-EXTUBATION RISK. REPOSITIONED TO SIDE WITHOUT PROBLEMS, MAINTAINING SATURATIONS WITH MOVEMENT. LEFT ARM PICC DI.
--- NOTE | 2021-02-08 11:10 | NUR ---
DR. VALDES HERE-UPDATED. NO PLANS FOR PRONE TODAY. TOLERATING VENT.
[2021-02-08 11:28] LABS: Base Excess Venous 8.3 mmol/L; Bicarbonate Venous 31.3 mmol/L (24.0-30.0); PCO2 Venous 37.8 mmHg (38-42); pH Blood Venous 7.52 (7.34-7.37)
--- NOTE | 2021-02-08 12:26 | NUR ---
PT WITH STABLE VS. PT'S CALLED-UPDATED, PLANS TO VISIT TODAY. PT AWAKENS TO NAME, CALM, ABLE TO NOD HEAD
--- NOTE | 2021-02-08 12:30 | NUR ---
review of pt in rounds some improvement noted. Will follow for fpc care needs in future.
--- NOTE | 2021-02-08 18:00 | NUR ---
PT TOLERATING VENT. OPENS EYES TO NAME, NODS HEAD. PT'S HERE-UPDATED, QUESTIONS ANSWERED. REPOSITIONED TO SIDE, TOLERATES TURNING. TUBE FEEDING INFUSING, LINES INTACT.
--- NOTE | 2021-02-08 19:37 | NUR ---
brief interaction with to update him on care and advise him we will want to speak with him after she is off the vent to assist with after care when she leaves the hospital. Pt may have some complex grief due to her age and her firtility.
--- NOTE | 2021-02-08 19:50 | NUR ---
ASSUMED CARE PATIENT LYING IN BED INTUBATED AND SEDATED WITH PROPOFOL @ 65MCG/KG/MIN, PRECEDEX @ 0.7 MCG/KG/HR, AND FENTANYL GRAIN SAMPLER @ 50MCG/HR. NS INF @ 10ML/HR AND VHP @ 10ML/HR VIA OGT. PATIENT TOLERATING VENT WELL ON AC/VS 24/450/10/50% W/ SPO2 > 90% AND RR 24-25RR/MIN. PATIENT ABLE TO SQUEEZ HANDS AND WIGGLE TOES BILATERALLY, OPENS EYES SLIGHTLY TO SOUND, AND SHAKES HEAD "YES/NO" TO SIMPLE QUESTIONS. TEMP PISANO IN PLACE PATENT AND DRAINING TO GRAVITY. WILL CONTINUE TO MONITOR.
--- NOTE | 2021-02-09 02:45 | NUR ---
SEDATION VACATION PROPOFOL TURNED OFF FOR 10 MINUTES; PATIENT DID NOT TOLERATE WELL. PATIENT BEGAN COUGHING, PULLING ON RESTRAINTS, AND TRYING TO LIFT HEAD. PATIENT WAS ABLE TO FOLLOW DIRECTIONS AND TRACK SOUND. PATIENT BECAME TACHYPNEIC IN THE MID TO HIGH 20'S WITH SPO2 REMAINING > 90%.
[2021-02-09 05:03] LABS: BASOPHILS ABSOLUTE AUTO 0.03 K/mm3 (0.00-0.23); BASOPHILS PERCENT AUTO 0 % (0-2); EOSINOPHILS ABSOLUTE AUTO 0.11 K/mm3 (0.00-0.68); EOSINOPHILS PERCENT AUTO 1 % (0-6); Hematocrit 34.6 % (33.0-51.0); Hemoglobin 10.7 g/dL (11.5-16.0); IMMATURE GRAN ABSOLUTE AUTO 0.83 K/mm3 (0.00-0.10); IMMATURE GRAN PERCENT AUTO 4 % (0-1); LYMPHOCYTES PERCENT AUTO 16 % (21-46); MONOCYTES ABSOLUTE AUTO 1.17 K/mm3 (0.16-1.47); MONOCYTES PERCENT AUTO 6 % (4-13); Mean Corpuscular HGB 25.2 pg (26.0-34.0); Mean Corpuscular HGB Conc 30.9 g/dL (31.5-36.5); Mean Corpuscular Volume 81 fL (80-100); NEUTROPHILS ABSOLUTE AUTO 13.69 K/mm3 (1.96-9.15); NEUTROPHILS PERCENT AUTO 73 % (41-73); Platelet Count 427 K/mm3 (150-400); RDW Coefficient Variation 14.5 % (11.7-14.2); RDW Standard Deviation 42.2 fL (35.1-46.3); Red Blood Cell Count 4.25 M/mm3 (3.80-5.20); White Blood Cell Count 18.73 K/mm3 (4.00-11.30)
[2021-02-09 05:24] LABS: Anion Gap 6 mmol/L (6-16); Blood Urea Nitrogen 16 mg/dL (8-24); Bun/Creatinine Ratio 29.8 (12.0-20.0); CO2, Blood 30 mmol/L (21-32); Calcium, Blood 8.5 mg/dL (8.5-10.1); Chloride, Blood 103 mmol/L (98-108); Creatinine, Blood 0.54 mg/dL (0.40-1.00); Glomerular Filtration Rate >60 (60-); Glucose, Blood 141 mg/dL (70-99); Potassium, Blood 3.5 mmol/L (3.5-5.5); Sodium, Blood 139 mmol/L (136-145)
--- NOTE | 2021-02-09 06:48 | NUR ---
SHIFT SUMMARY PATIENT REMAINED INTUBATED AND SEDATED ON PROPOFOL @ 65MCG/KG/MIN, PRECEDEX @ 0.7MCG/KG/HR AND FENTANYL FITNESS MANAGER @ 50MCG/HR; NS INF @ 10ML/HR. VHP TF INF @ 10ML/HR W/ NO RESIDUAL. ABLE TO FOLLOW SIMPLE COMMANDS, NOD HEAD "YES/NO" TO SIMPLE QUESTIONS. VENT SETTINGS REMAINED AT AC/VC 20/450/10/45%. SEDATION VACATION THIS SHIFT WAS UNSUCCESSFUL. SEE NOTE "SEDATION VACATION". NO OTHER MAJOR CHANGES THROUGHOUT SHIFT.
--- NOTE | 2021-02-09 08:30 | NUR ---
ASSUMED CARE REPORT FROM OSCAR BROWN AT 0700. PT INTUBATED AND SEDATED. VENT SETTINGS AC 20/450/10/40%. LUNGS CLEAR. SMALL AMOUNT OF THIN RIVERA SECRETIONS THROUGH ETT. PROPOFOL, PRECEDEX AND FENTANYL GTT FOR SEDATION/PAIN. PT OPENS EYES TO VERBAL STIMULI. NODS TO SIMPLE QUESTIONS. FOLLOWS SIMPLE COMMANDS. ABD OBESE, SOFT, NON TENDER. HYPOACTIVE BT. BOWEL CARE PROVIDED. TUBE FEEDS AT 10 ML/HR c 30 ML FLUSH q4 HR. 180 ML OF RESIDUALS THIS AM. PISANO PATENT, DRAINING JAYLAN URINE c SEDIMENT TO GRAVITY. PICC TO LUE, DRESSING C/D/I. BP STABLE, NSR, RATE 70'S. WILL CONTINUE TO MONITOR.
--- NOTE | 2021-02-09 17:48 | NUR ---
SHIFT SUMMARY PT REMAINS INTUBATED AND SEDATED. VENT SETTINGS AC 20/450/8/40%. PROPOFOL AND FENTANYL GTT. PT OPENS EYES TO VERBAL STIMULI. FOLLOWS SIMPLE DIRECTIONS. LUNGS CLEAR. SMALL AMOUNT OF SECRETIONS THROUGH ETT. COUGH/GAG/SWALLOW REFLEX PRESENT. TUBE FEEDS AT GOAL OF 20 ML/HR, NO RESIDUALS THIS AFTERNOON. PISANO PATENT, DRAINING JAYLAN URINE TO GRAVITY, 2300 ML OUT THIS SHIFT. BP STABLE. SR, RATE 60-70'S. PICC TO LUE, DRESSING C/D/I. WILL CONTINUE TO MONITOR UNTIL REPORT TO ONCOMING NURSE.
--- NOTE | 2021-02-09 20:00 | NUR ---
ASSUPTION OF CARE PT REMAINS INTUBATED. VENT SETTINGS VC 20/450/10/45%. PT RECEIVING PROPOFOL 65MCG/KG/MIN, PRECEDEX 0.7MCG/KG/HR, AND FENTANYL 50MG/HR. PT WAKENS TO VERBAL STIMULI AND FOLLOWS VERBAL COMMANDS. PT NODS/SHAKES HER HEAD TO ANSWER QUESTIONS. PT DENIES PAIN OR DISCOMFORT. PISANO IN PLACE DRAINING CLEAR YELLOW URINE.
[2021-02-10 03:55] LABS: BASOPHILS ABSOLUTE AUTO 0.03 K/mm3 (0.00-0.23); BASOPHILS PERCENT AUTO 0 % (0-2); EOSINOPHILS ABSOLUTE AUTO 0.25 K/mm3 (0.00-0.68); EOSINOPHILS PERCENT AUTO 1 % (0-6); Hematocrit 33.4 % (33.0-51.0); Hemoglobin 10.6 g/dL (11.5-16.0); IMMATURE GRAN ABSOLUTE AUTO 0.68 K/mm3 (0.00-0.10); IMMATURE GRAN PERCENT AUTO 4 % (0-1); LYMPHOCYTES ABSOLUTE AUTO 2.86 K/mm3 (0.84-5.20); LYMPHOCYTES PERCENT AUTO 17 % (21-46); MONOCYTES ABSOLUTE AUTO 1.31 K/mm3 (0.16-1.47); MONOCYTES PERCENT AUTO 8 % (4-13); Mean Corpuscular HGB 25.3 pg (26.0-34.0); Mean Corpuscular HGB Conc 31.7 g/dL (31.5-36.5); Mean Corpuscular Volume 80 fL (80-100); Mean Platelet Volume 9.8 fL (9.1-12.4); NEUTROPHILS ABSOLUTE AUTO 12.14 K/mm3 (1.96-9.15); NEUTROPHILS PERCENT AUTO 70 % (41-73); Platelet Count 387 K/mm3 (150-400); RDW Coefficient Variation 14.1 % (11.7-14.2); RDW Standard Deviation 40.7 fL (35.1-46.3); Red Blood Cell Count 4.19 M/mm3 (3.80-5.20); White Blood Cell Count 17.27 K/mm3 (4.00-11.30)
[2021-02-10 04:11] LABS: Anion Gap 5 mmol/L (6-16); Blood Urea Nitrogen 15 mg/dL (8-24); Bun/Creatinine Ratio 30.4 (12.0-20.0); CO2, Blood 29 mmol/L (21-32); Calcium, Blood 8.4 mg/dL (8.5-10.1); Chloride, Blood 103 mmol/L (98-108); Creatinine, Blood 0.49 mg/dL (0.40-1.00); Glomerular Filtration Rate >60 (60-); Glucose, Blood 158 mg/dL (70-99); Phosphorus, Blood 2.5 mg/dL (2.5-4.9); Potassium, Blood 3.3 mmol/L (3.5-5.5); Sodium, Blood 137 mmol/L (136-145)
[2021-02-10 04:58] LABS: PCO2 Arterial 43.7 mmHg (35-45); PO2 Arterial 51.5 mmHg (80-100); pH Blood Arterial 7.46 (7.35-7.45)
--- NOTE | 2021-02-10 06:26 | NUR ---
SHIFT SUMMARY PT REMAINS INTUBATED. VENT SETTINGS AC 20/450/8/35%. PT WAKENS TO VERBAL STIMULI, REMAINS ABLE TO NOD HEAD YES/NO TO QUESTIONS, AND SQUEEZE HANDS. PT CURRENTLY RECEIVING PROPOFOL 65MCG/MG/MIN, PRECEDEX 0.7MCG/KG/HR, FENTANYL 50MCG/HR, AND POTASSIUM PHOSPHATE. LUNG SOUNDS REMAIN CLEAR IN UPPER LOBES, DIMINISHED IN LOWER. PT IN NSR WITH HR IN 60S. NO EDEMA NOTED. ABDOMEN TENDER, NO FACIAL GRIMACING OR LOCALIZING WITH PALPATION. SUPPOSITORY GIVEN DUE TO EXTENDED PERIOD WITHOUT BM. TUBE FEEDINGS REMAIN INFUSING AT GOAL RATE. PISANO IN PLACE. PT HAD URINARY OUTPUT OF 1750ML THIS SHIFT. WILL REPORT TO ONCOMING RN.
--- NOTE | 2021-02-10 07:50 | NUR ---
ASSUMED CARE REPORT FROM KERRY BROWN. PT INTUBATED AND SEDATED. VENT SETTINGS AC 20/450/8/35%. SMALL AMOUNT OF THIN WHITE SECRETIONS THROUGH ETT. LUNGS DIM IN BASES. COUGH/GAG REFLEX PRESENT. PROPOFOL, PRECEDEX AND FENTANYL GTT FOR PAIN AND SEDATION. PT OPENS EYES TO VERBAL STIMULI. FOLLOWS SIMPLE COMMANDS. ELLI. ABD ROUND, SOFT, NON TENDER. HYPOACTIVE BT. BOWEL CARE PROVIDED. TUBE FEEDS AT GOAL, 20 ML/HR c 30 ML FLUSH q4 HR. NO RESIDUALS THIS AM. PISANO PATENT, DRAINING JAYLAN URINE TO GRAVITY. BP STABLE, NSR, RATE 70'S. WILL CONTINUE TO MONITOR.
--- NOTE | 2021-02-10 09:36 | NUR ---
DR VALDES ROUNDS PLAN TO LEAVE PT INTUBATED TODAY. WILL ATTEMPT OPEN ENDED SPONT BREATHING TRIAL THIS AFTERNOON. SEDATION LIGHTENED. WILL WORK c PT ROM AND STRENGTH EXERCISES. PT MOTIVATED AND PARTICIPATING.
[2021-02-10 11:33] LABS: Vancomycin, Trough 12.4 ug/mL (5.0-10.0)
--- NOTE | 2021-02-10 16:21 | NUR ---
reiview of pt with RT on pressure support trials. More alert wanting to wake up.
--- NOTE | 2021-02-10 17:47 | NUR ---
SHIFT SUMMARY PT REMAINS INTUBATED AND SEDATED. VENT SETTINGS AC 20/450/8/50%. PT PLACED ON SPONT 10/7/50% FOR APPROX 2 HOURS. O2 SATS DECREASED TO HIGH 80'S. LUNGS DIM IN BASES. INCREASED SECRETIONS THIS SHIFT, PINK TINGED, THICK. STRONG COUGH. PROPOFOL GTT 40 MCG/KG/MIN, PRECEDEX 0.7 MCG/KG/HR, AND FENTANYL 50 MCG/HR. PT OPENS EYES TO VERBAL STIMULI. FOLLOWS SIMPLE COMMANDS. TUBE FEEDS INCREASED THIS SHIFT, 25 ML/HR, NO RESIDUALS. NO BM THIS SHIFT. ABD ROUND, SOFT, NON TENDER. BT HYPOACTIVE. PISANO PATENT, DRAINING CLEAR YELLOW URINE TO GRAVITY. BP STABLE. NSR, RATE 60-70'S. PICC TO [place]. WILL CONTINUE TO MONITOR UNTIL REPORT TO ONCOMING NURSE.
--- NOTE | 2021-02-10 19:30 | NUR ---
ASSUMPTION OF CARE PT REMAINS INTUBATED AT THIS TIME. VENT SETTINGS VC 20/450/8/60%. PT TOLERATING VENT WELL. MODERATE AMOUNT OF THICK WHITE/CLEAR SECRETIONS. PT WAKENS TO VERBAL STIMULI. PT FOLLOWS VERBAL COMMANDS, ANSWERS QUESTIONS BY NODDING/SHAKING HEAD. PT DENIES PAIN OR DISCOMFORT. PT RECEIVING PROPOFOL 50MCG/KG/MIN, PRECEDEX 0.7MCG/KG/HR, FENTANYL 50MCG/HR. TUBE FEEDING INFUSING AT GOAL RATE. BOWEL TONES REMAIN HYPOACTIVE. PISANO IN PLACE DRAINING LARGE AMOUNTS OF PALE YELLOW URINE.
[2021-02-11 04:09] LABS: BASOPHILS ABSOLUTE AUTO 0.04 K/mm3 (0.00-0.23); BASOPHILS PERCENT AUTO 0 % (0-2); EOSINOPHILS ABSOLUTE AUTO 0.22 K/mm3 (0.00-0.68); EOSINOPHILS PERCENT AUTO 2 % (0-6); Hematocrit 33.6 % (33.0-51.0); Hemoglobin 10.5 g/dL (11.5-16.0); IMMATURE GRAN ABSOLUTE AUTO 0.45 K/mm3 (0.00-0.10); IMMATURE GRAN PERCENT AUTO 3 % (0-1); LYMPHOCYTES ABSOLUTE AUTO 2.82 K/mm3 (0.84-5.20); LYMPHOCYTES PERCENT AUTO 19 % (21-46); MONOCYTES ABSOLUTE AUTO 0.95 K/mm3 (0.16-1.47); MONOCYTES PERCENT AUTO 6 % (4-13); Mean Corpuscular HGB 25.4 pg (26.0-34.0); Mean Corpuscular HGB Conc 31.3 g/dL (31.5-36.5); Mean Corpuscular Volume 81 fL (80-100); NEUTROPHILS ABSOLUTE AUTO 10.32 K/mm3 (1.96-9.15); NEUTROPHILS PERCENT AUTO 70 % (41-73); Platelet Count 377 K/mm3 (150-400); RDW Standard Deviation 40.5 fL (35.1-46.3); Red Blood Cell Count 4.14 M/mm3 (3.80-5.20)
[2021-02-11 04:28] LABS: Anion Gap 5 mmol/L (6-16); Blood Urea Nitrogen 16 mg/dL (8-24); Bun/Creatinine Ratio 33.8 (12.0-20.0); CO2, Blood 29 mmol/L (21-32); Calcium, Blood 8.6 mg/dL (8.5-10.1); Chloride, Blood 103 mmol/L (98-108); Creatinine, Blood 0.47 mg/dL (0.40-1.00); Glomerular Filtration Rate >60 (60-); Glucose, Blood 183 mg/dL (70-99); Phosphorus, Blood 2.9 mg/dL (2.5-4.9); Potassium, Blood 3.1 mmol/L (3.5-5.5); Sodium, Blood 137 mmol/L (136-145)
--- NOTE | 2021-02-11 06:16 | NUR ---
SHIFT SUMMARY PT REMAINS INTUBATED. VENT SETTINGS VC 20/450/8/60%. PT TOLERATING VENT WELL. PT HAS MODERATE AMOUNT OF THICK WHITE/CLEAR SECRETIONS. PT WAKENS TO VERBAL STIMULI, NODS HEAD YES/NO TO ANSWER QUESTIONS AND FOLLOWS VERBAL COMMANDS. PT DENIES PAIN OR DISCOMFORT. HR REMAINS IN 50S-60S, NSR. BOWEL SOUNDS REMAIN HYPOACTIVE. PT DID HAVE SMALL, MUCOUS BM THIS SHIFT. TUBE FEEDING REMAINS AT GOAL RATE. PISANO IN PLACE DRAINING PALE YELLOW URINE. SHIFT OUTPUT OF 1650ML. WILL REPORT TO ONCOMING RN.
--- NOTE | 2021-02-11 08:45 | NUR ---
ASSUMED CARE REPORT RECIEVED. PT IS INTUBATED AND SEDATED. VENT SETTINGS AC 20, TV 450, PEEP 8, FIO2 60%. PT SEDATED WITH PROPOFOL, PRECEDEX, AND FENTANYL SALON/SPA MANAGER. SEE FLOWSHEET FOR TITRATIONS. PICC TO PELON C/D/I. OGT IN PLACE WITH TF INFUSING AT GOAL RATE. PISANO TEMP PROBE IN PLACE WITH CLEAR YELLOW URINE OUTPUT NOTED. VITAL SIGNS STABLE. SBW RESTRAINTS IN PLACE. WILL CONTINUE TO MONITOR.
--- NOTE | 2021-02-11 17:36 | NUR ---
SHIFT SUMMARY NO ACUTE CHANGES THIS SHIFT. PT REMAINS INTUBATED AND SEDATED. VENT SETTINGS REMAINS AC 20, TV 450, PEEP 10, FIO2 60%. PT WITH MODERATE AMOUNT OF ETT SECRETIONS WITH SUCTION. PT REMAINS SEDATED WITH PROPOFOL AT 50 MCG/KG/MIN, PRECEDEX 1.0 MCG/KG/MIN, AND FENTANYL SENIOR SOFTWARE ENGINEERING MANAGER 50 MCG/HR. NS INFUSING TKO. PICC TO PELON C/D/I. PT OPENS EYES SPONTANEOUSLY AND FOLLOWS SIMPLE DIRECTIONS. OGT IN PLACE WITH TF INFUSING AT GOAL RATE. PT WITH HIGH RESIDUALS THIS SHIFT. DIETARY AWARE. PISANO TEMP PROBE REMAINS IN PLACE WITH LARGE VOLUME OF CLEAR YELLOW OUTPUT NOTED. SBW RESTRAINTS REMAIN IN PLACE. VITAL SIGNS STABLE. WILL CONTINUE TO MONITOR AND REPORT OFF TO ONCOMING RN.
--- NOTE | 2021-02-11 19:15 | NUR ---
ASSUMPTION OF CARE PT REMAINS INTUBATED. VENT SETTINGS VC 20/450/10/55%. OCCASIONALLY COUGHS WITH MODERATE AMOUNT OF SECRETIONS. PT RECEIVING PROPOFOL 50MCG/KG/MIN, PRECEDEX 1.0MCG/KG/HR, AND FENTANYL 50MCG/HR. PT HAD 450ML RESIDUAL IN OGT. PAUSED TUBE FEEDING AT THIS TIME. SEE SHIFT ASSESSMENT.
[2021-02-12 04:50] LABS: BASOPHILS ABSOLUTE AUTO 0.02 K/mm3 (0.00-0.23); BASOPHILS PERCENT AUTO 0 % (0-2); EOSINOPHILS ABSOLUTE AUTO 0.28 K/mm3 (0.00-0.68); EOSINOPHILS PERCENT AUTO 2 % (0-6); Hematocrit 33.9 % (33.0-51.0); Hemoglobin 10.8 g/dL (11.5-16.0); IMMATURE GRAN ABSOLUTE AUTO 0.25 K/mm3 (0.00-0.10); IMMATURE GRAN PERCENT AUTO 2 % (0-1); LYMPHOCYTES ABSOLUTE AUTO 2.43 K/mm3 (0.84-5.20); LYMPHOCYTES PERCENT AUTO 18 % (21-46); MONOCYTES PERCENT AUTO 9 % (4-13); Mean Corpuscular HGB 25.6 pg (26.0-34.0); Mean Corpuscular HGB Conc 31.9 g/dL (31.5-36.5); Mean Corpuscular Volume 80 fL (80-100); NEUTROPHILS ABSOLUTE AUTO 9.32 K/mm3 (1.96-9.15); NEUTROPHILS PERCENT AUTO 69 % (41-73); Platelet Count 388 K/mm3 (150-400); RDW Coefficient Variation 14.1 % (11.7-14.2); RDW Standard Deviation 40.4 fL (35.1-46.3); Red Blood Cell Count 4.22 M/mm3 (3.80-5.20)
[2021-02-12 05:17] LABS: PCO2 Arterial 38.2 mmHg (35-45); PO2 Arterial 78.4 mmHg (80-100); pH Blood Arterial 7.49 (7.35-7.45)
[2021-02-12 05:26] LABS: Anion Gap 6 mmol/L (6-16); Blood Urea Nitrogen 13 mg/dL (8-24); Bun/Creatinine Ratio 28.4 (12.0-20.0); CO2, Blood 29 mmol/L (21-32); Calcium, Blood 8.7 mg/dL (8.5-10.1); Chloride, Blood 102 mmol/L (98-108); Creatinine, Blood 0.46 mg/dL (0.40-1.00); Glomerular Filtration Rate >60 (60-); Glucose, Blood 153 mg/dL (70-99); Sodium, Blood 137 mmol/L (136-145)
--- NOTE | 2021-02-12 06:28 | NUR ---
SHIFT SUMMARY PT REMAINS INTUBATED. VENT SETTINGS VC 20/450/10/55%. PT TOLERATING VENT WELL. PT WAKENS TO VERBAL STIMULI. NODS/SHAKES HEAD TO ANSWER QUESTIONS AND FOLLOWS VERBAL COMMANDS. PT PURPOSEFULLY MOVES UPPER EXTREMITIES, WIGGLES TOES OFTEN. PT APPEARS CALM, DENIES PAIN OR DISCOMFORT. PT RECEIVING PROPOFOL 50MCG/KG/MIN, PRECEDEX 1.0MCG/KG/HR, AND FENTANYL 50MCG/HR. PT GIVEN MILK OF MAG PER EMAR, STILL NO BM. PISANO IN PLACE DRAINING PALE YELLOW URINE. OUTPUT OF 1850ML THIS SHIFT. WILL REPORT TO ONCOMING RN.
--- NOTE | 2021-02-12 09:38 | NUR ---
ASSUMED CARE OF PT, SHE IS LIGHTLY SEDATED ON PROPOFOL AT 50MCG AND PRECEDEX AT 1, PT WAKES EASILY AND NODS YES AND NO APPROPRIATELY, PT ON AC 20, TV 450, PEEP 10, FIO2 50%, PT AGITATED WITH CARES DONE, SHAKING HER HEAD, FEET AND TAPPING HER HANDS, PROPOFOL TITRATED UP TO 60MCG WITH GOOD EFFECT, PT ALSO ON FENTANYL AT 50, WILL CONT TO MONITOR
--- NOTE | 2021-02-12 18:11 | NUR ---
SUMMARY PT CONT TO BE SEDATED AND INTUBATED, WAKES EASILY, IS ON 60MCG PROPOFOL, 50 MCG FENTANYL, AND 1 MCG PRECEDEX, PT NODS YES AND NO APPROPRIATELY, FOLLOWS SOME COMMANDS, ANXIOUS WHEN UNABLE TO COMMUNICATE, PHYSICAL THERAPIST DID GO IN AND WORK WITH THE PT IN THE BED WITH RANGE OF MOTION AND THAT SEEMED TO HELP, SPOKE WITH PT'S SPOUSE ON THE PHONE WITH UPDATES, HE IS UNHAPPY HE CANNOT COME IN TO VISIT AT THIS TIME, PT WITH HIGH RESIDUALS FROM THE OG TUBE, TUBE FEEDS ON HOLD, RESTARTED, THEN ON HOLD AGAIN, NO RESIDUALS AT 1600, NOW RESTARTED, GOOD URINE OUTPUT, SKIN REMAINS OK, VSS, O2 TITRATED DOWN TO 45%, WILL CONTINUE TO MONITOR
[2021-02-13 04:21] LABS: BASOPHILS ABSOLUTE AUTO 0.04 K/mm3 (0.00-0.23); BASOPHILS PERCENT AUTO 0 % (0-2); EOSINOPHILS ABSOLUTE AUTO 0.32 K/mm3 (0.00-0.68); EOSINOPHILS PERCENT AUTO 2 % (0-6); Hematocrit 35.3 % (33.0-51.0); Hemoglobin 11.3 g/dL (11.5-16.0); IMMATURE GRAN ABSOLUTE AUTO 0.18 K/mm3 (0.00-0.10); IMMATURE GRAN PERCENT AUTO 1 % (0-1); LYMPHOCYTES ABSOLUTE AUTO 2.52 K/mm3 (0.84-5.20); LYMPHOCYTES PERCENT AUTO 17 % (21-46); MONOCYTES PERCENT AUTO 8 % (4-13); Mean Corpuscular HGB 25.6 pg (26.0-34.0); Mean Corpuscular Volume 80 fL (80-100); Mean Platelet Volume 9.9 fL (9.1-12.4); NEUTROPHILS ABSOLUTE AUTO 10.86 K/mm3 (1.96-9.15); NEUTROPHILS PERCENT AUTO 72 % (41-73); Platelet Count 402 K/mm3 (150-400); RDW Coefficient Variation 14.6 % (11.7-14.2); RDW Standard Deviation 41.1 fL (35.1-46.3); Red Blood Cell Count 4.42 M/mm3 (3.80-5.20); White Blood Cell Count 15.12 K/mm3 (4.00-11.30)
[2021-02-13 04:37] LABS: Anion Gap 8 mmol/L (6-16); Blood Urea Nitrogen 13 mg/dL (8-24); Bun/Creatinine Ratio 26.9 (12.0-20.0); CO2, Blood 27 mmol/L (21-32); Calcium, Blood 8.8 mg/dL (8.5-10.1); Chloride, Blood 101 mmol/L (98-108); Creatinine, Blood 0.48 mg/dL (0.40-1.00); Glomerular Filtration Rate >60 (60-); Glucose, Blood 167 mg/dL (70-99); Magnesium, Blood 2.1 mg/dL (1.6-2.4); Phosphorus, Blood 2.9 mg/dL (2.5-4.9); Potassium, Blood 3.1 mmol/L (3.5-5.5); Sodium, Blood 136 mmol/L (136-145)
--- NOTE | 2021-02-13 07:24 | NUR ---
END OF SHIFT SUMMARY PT CONT TO BE INTUBATED WITH VENT SETTINGS AC 24, TV 450, PEEP 15, FIO2 30%. PT REACTIVE TO VERBAL STIMULI AND ATTEMPTS TO TALK OVER ETT, SNELL, PULLS AGAINST RESTRAINTS; PROPOFOL INFUSING AT 65MCG/KG/MIN; PRECEDEX INFUSING AT 1.4MCG/KG/MIN; FENTANYL INFUSING AT 50MCG/HR. MAX TEMP 101.5; TYLENOL GIVEN AND HELPFUL. HR 70-80'S. SBP 120-140. VHP INFUSING AT 12ML/HR WITH 30ML WATER FLUSHES Q4HR; HIGH RESIDUALS NOTED AND RATE TURNED DOWN AND REGLAN GIVEN. PISANO IN PLACE AND DRAINING TO GRAVITY. KCL HAS NOT RECIEVED FROM PHARMACY YET. REPORT GIVEN TO ALIE.
--- NOTE | 2021-02-13 08:30 | NUR ---
ASSUMED CARE REPORT FROM OSCAR BROWN AT 0700. PT INTUBATED, SEDATED. VENT SETTINGS VC 20/450/10/30%. LUNGS DIM IN BASES. PROPOFOL, FENTANYL AND PRECEDEX GTT INFUSING. PT OPENS EYES TO VERBAL STIMULI. FOLLOWS SIMPLE COMMANDS. NODS HEAD YES/NO TO QUESTIONS. DENIES SOB. ABD ROUND, SOFT, NON TENDER. BT X 4. HIGH RESIDUALS THIS AM. PISANO PATENT, DRAINING CLEAR YELLOW URINE TO GRAVITY. VSS. WILL CONTINUE TO MONITOR.
--- NOTE | 2021-02-13 14:40 | NUR ---
REASSESSMENT PT ON SPONT 06/04/30% SINCE THIS AM. TOLERATING WELL.
--- NOTE | 2021-02-13 18:36 | NUR ---
SHIFT SUMMARY PT REMAINS INTUBATED AND SEDATED. VENT SETTINGS SPONT 12/10/40%. PROPOFOL, PRECEDEX AND FENTANYL GTT FOR SEDATION. PT NEURO STATUS UNCHANGED. LUNGS DIM IN BASES. SMALL AMOUNT OF SECRETIONS THROUGH ETT. HIGH RESIDUALS THIS SHIFT. TUBE FEEDS ON HOLD AT THIS TIME. VSS. PISANO PATENT, DRAINING TO GRAVITY. WILL CONTINUE TO MONITOR UNTIL REPORT TO ONCOMING NURSE.
[2021-02-13 19:49] LABS: Alanine Aminotransfer (ALT/SGP 45 U/L (12-78); Albumin, Blood 2.2 g/dL (3.4-5.0); Albumin/Globulin Ratio 0.5 (0.8-1.8); Alk Phos 52 U/L (50-136); Anion Gap 8 mmol/L (6-16); Aspartate Aminotrans (AST/SGOT 38 U/L (12-37); Bilirubin, Total 1.6 mg/dL (0.1-1.0); Blood Urea Nitrogen 12 mg/dL (8-24); Bun/Creatinine Ratio 34.5 (12.0-20.0); CO2, Blood 21 mmol/L (21-32); Chloride, Blood 98 mmol/L (98-108); Creatinine, Blood 0.35 mg/dL (0.40-1.00); Globulin, Blood 4.2 g/dL (2.2-4.0); Glomerular Filtration Rate >60 (60-); Glucose, Blood 192 mg/dL (70-99); Potassium, Blood 3.8 mmol/L (3.5-5.5); Sodium, Blood 127 mmol/L (136-145); Total Protein, Blood 6.4 g/dL (6.4-8.2)
[2021-02-14 05:10] LABS: BASOPHILS ABSOLUTE AUTO 0.06 K/mm3 (0.00-0.23); BASOPHILS PERCENT AUTO 0 % (0-2); EOSINOPHILS ABSOLUTE AUTO 0.33 K/mm3 (0.00-0.68); EOSINOPHILS PERCENT AUTO 2 % (0-6); Hematocrit 35.1 % (33.0-51.0); Hemoglobin 11.2 g/dL (11.5-16.0); IMMATURE GRAN ABSOLUTE AUTO 0.15 K/mm3 (0.00-0.10); IMMATURE GRAN PERCENT AUTO 1 % (0-1); LYMPHOCYTES ABSOLUTE AUTO 1.94 K/mm3 (0.84-5.20); LYMPHOCYTES PERCENT AUTO 13 % (21-46); MONOCYTES ABSOLUTE AUTO 1.08 K/mm3 (0.16-1.47); MONOCYTES PERCENT AUTO 7 % (4-13); Mean Corpuscular HGB 25.7 pg (26.0-34.0); Mean Corpuscular HGB Conc 31.9 g/dL (31.5-36.5); Mean Corpuscular Volume 81 fL (80-100); Mean Platelet Volume 9.8 fL (9.1-12.4); NEUTROPHILS ABSOLUTE AUTO 11.06 K/mm3 (1.96-9.15); NEUTROPHILS PERCENT AUTO 76 % (41-73); Platelet Count 385 K/mm3 (150-400); RDW Coefficient Variation 14.3 % (11.7-14.2); RDW Standard Deviation 41.5 fL (35.1-46.3); Red Blood Cell Count 4.36 M/mm3 (3.80-5.20); White Blood Cell Count 14.62 K/mm3 (4.00-11.30)
[2021-02-14 05:40] LABS: Albumin, Blood 2.5 g/dL (3.4-5.0); Anion Gap 8 mmol/L (6-16); Blood Urea Nitrogen 12 mg/dL (8-24); Bun/Creatinine Ratio 27.3 (12.0-20.0); CO2, Blood 25 mmol/L (21-32); Chloride, Blood 103 mmol/L (98-108); Creatinine, Blood 0.44 mg/dL (0.40-1.00); Glomerular Filtration Rate >60 (60-); Glucose, Blood 162 mg/dL (70-99); Potassium, Blood 3.3 mmol/L (3.5-5.5); Sodium, Blood 136 mmol/L (136-145)
--- NOTE | 2021-02-14 07:05 | NUR ---
END OF SHIFT SUMMARY PT CONT TO BE INTUBATED WITH VENT SETTINGS SPONT 12/10, FIO2 30%. PT REACTIVE TO VERBAL AND PAINFUL STIMULI; CAN ANSWER Y/N QUESTIONS WITH HEAD NODS; PROPOFOL INFUSING AT 65MCG/KGMIN; PRECEDEX INFUSING AT 1.4MCG/KG/HR; FENTANYL INFUSING AT 50MCG/HR. HR 70-80'S. SBP 120-140. OG CLAMPED ALL SHIFT DUE TO RESIDUALS >250ML. PISANO PATENT AND DRAINING TO GRAVITY. REPORT GIVEN TO ALIE.
--- NOTE | 2021-02-14 09:30 | NUR ---
ASSUMED CARE REPORT FROM OSCAR BROWN AT 0700. PT INTUBATED, SEDATED. VENT SETTINGS SPONT 06/04/40%. LUNGS CLEAR. STRONG COUGH. SMALL AMOUNT OF SECRETIONS. FOLLOWS SIMPLE COMMANDS. MAEW. NODS HEAD TO YES/NO QUESTIONS. ABD ROUND, NON TENDER. HYPOACTIVE BT. PT HAS STILL NOT HAD BM. BOWEL CARE PROVIDED. TUBE FEEDS ON STANDBY D/T RESIDUALS. PISANO PATENT, DRAINING JAYLAN URINE TO GRAVITY. VSS. WILL CONTINUE TO MONITOR.
--- NOTE | 2021-02-14 13:24 | NUR ---
EXTUBATION PT FOLLOWING COMMANDS, SMALL AMOUNT OF SECRETIONS. STRONG COUGH. SEDATION PLACED ON STANDBY. PT EXTUBATED AT 1250. RESTRAINTS REMOVED. PLACED ON 4L VIA NC. PT ABLE TO MANAGE SECRETIONS dung CUBA. WILL CONTINUE TO MONITOR CLOSELY.
--- NOTE | 2021-02-14 17:52 | NUR ---
SHIFT SUMMARY PT EXTUBATED THIS SHIFT, SEE PREVIOUS NOTE. 5L VIA NC, O2 SATS 89-93%. STRONG COUGH. PT ABLE TO CLEAR SECRETIONS c COUGH OR YANKUER. LUNGS COARSE. N/V AT END OF SHIFT. MEDICATED c ZOFRAN. HELD SWALLOW EVAL AT THIS TIME. 1 LARGE BM THIS SHIFT. BP STABLE. ST ON MONITOR, RATE 100'S. PICC TO LUE, DRESSING C/D/I. PISANO PATENT, DRAINING TO GRAVITY. UPDATED. WILL CONTINUE TO MONITOR UNTIL REPORT TO ONCOMING NURSE.
--- NOTE | 2021-02-14 21:00 | NUR ---
ASSUMED CARE AT 1900 PT LAYING IN BED NONVERBAL BUT IS ANSWERING Y/N QUESTIONS APPROPRIATLY AND FOLLOWING DIRECTIONS; WEAKNESS NOTED TO BODY POSITIONS AND MOVING BUE; SLOWLY CONTROLS HEAD. SPO2 89-95% ON 15L HIGH FLOW NC; STRONG PRODUCTIVE COUGH WITH THIN YELLOW/CLEAR SECREATIONS NOTED. HR 110-130'S. SBP 150'S. ONE EPISODE OF EMISIS WITH 300ML OF YELLOW/CREEN BILE LIKE OUTPUT; CALLED DR LEBLANC REGARDING CONT NAUSEA; NEW ORDERS FOR PHENERGAN PROVIDED AND GIVEN. PISANO IN PLACE AND DRAINING TO GRAVITY. SEE SURG ASSESSMENT FOR FULL ASSESSMENT.
--- NOTE | 2021-02-14 22:37 | NUR ---
UPDATE PT WENT INTO A NONPRODUCTIVE COUGHING EPISODE FOLLOWED BY INCREASE IN RESTLESSNESS, ANXIETY, HR 150'S, RR 40'S, SPO2 MID 80'S AND A LARGE BM. PT MOUTHING WORDS TO "PROMISE NOT TO INTUBATE ME". COMPLETE BED CHANGE COMPLETED. PT SWITCHED OVER TO AIRVO 60L, FIO2 100%; TOLERATING WELL BUT CONT TO HAVE HR 150'S AND RR 40'S. DR ZIMMERMAN ON UNIT AND NOTIFIED OF SITUATION. NEW ORDERS FOR PRECEDEX AND ATIVAN PROVIDED. PRECEDEX TITRATED UP TO 0.5MCG/KG/HR. 1MG ATIVAN IV PUSH GIVEN AND HELPFUL. CURRENT HR LOW 140'S, AND RR MID 30'S. WILL CONT TO MONITOR.
[2021-02-15 04:17] LABS: BASOPHILS ABSOLUTE AUTO 0.09 K/mm3 (0.00-0.23); BASOPHILS PERCENT AUTO 0 % (0-2); EOSINOPHILS ABSOLUTE AUTO 0.25 K/mm3 (0.00-0.68); EOSINOPHILS PERCENT AUTO 1 % (0-6); Hematocrit 38.5 % (33.0-51.0); Hemoglobin 11.9 g/dL (11.5-16.0); IMMATURE GRAN ABSOLUTE AUTO 0.22 K/mm3 (0.00-0.10); IMMATURE GRAN PERCENT AUTO 1 % (0-1); LYMPHOCYTES ABSOLUTE AUTO 1.28 K/mm3 (0.84-5.20); LYMPHOCYTES PERCENT AUTO 6 % (21-46); MONOCYTES ABSOLUTE AUTO 1.52 K/mm3 (0.16-1.47); MONOCYTES PERCENT AUTO 7 % (4-13); Mean Corpuscular HGB 25.3 pg (26.0-34.0); Mean Corpuscular HGB Conc 30.9 g/dL (31.5-36.5); Mean Corpuscular Volume 82 fL (80-100); Mean Platelet Volume 9.8 fL (9.1-12.4); NEUTROPHILS ABSOLUTE AUTO 19.18 K/mm3 (1.96-9.15); NEUTROPHILS PERCENT AUTO 85 % (41-73); Platelet Count 489 K/mm3 (150-400); RDW Coefficient Variation 14.3 % (11.7-14.2); RDW Standard Deviation 41.6 fL (35.1-46.3); Red Blood Cell Count 4.71 M/mm3 (3.80-5.20); White Blood Cell Count 22.54 K/mm3 (4.00-11.30)
[2021-02-15 04:33] LABS: Albumin, Blood 2.7 g/dL (3.4-5.0); Anion Gap 7 mmol/L (6-16); Blood Urea Nitrogen 12 mg/dL (8-24); Bun/Creatinine Ratio 28.9 (12.0-20.0); CO2, Blood 26 mmol/L (21-32); Calcium, Blood 8.8 mg/dL (8.5-10.1); Chloride, Blood 105 mmol/L (98-108); Creatinine, Blood 0.42 mg/dL (0.40-1.00); Glomerular Filtration Rate >60 (60-); Glucose, Blood 154 mg/dL (70-99); Phosphorus, Blood 2.9 mg/dL (2.5-4.9); Potassium, Blood 3.3 mmol/L (3.5-5.5); Sodium, Blood 138 mmol/L (136-145)
--- NOTE | 2021-02-15 05:50 | NUR ---
END OF SHIFT SUMMARY PT LESS ANXIOUS AND RESTLESS THAN PREVIOUSLY; PRECEDEX TITRATED UP TO 0.7MCG/KG/HR; PT ABLE TO ANSWER Y/N QUESTIONS WITH HEAD NODS AND MOUTHS WORDS WHEN TRYING TO COMMUNICATE; PT PROFOUNDLY WEAK. AIRVO SETTINGS 60L, FIO2 90%, SPO2 89-95%; LESS PRODUCTIVE COUGH NOW COMPAIRED TO EARLIER. HR 100-150. SBP 120-150. FREQUENT EPISODES OF NAUSEA; PRN ZOFRAN, REGLAN AND PHENAGRAN GIVEN SEVERAL TIMES. PISANO IN PLACE AND DRAINING DARK JAYLAN URINE. NYSTATIN CREAM ORDERED FOR REDNESS IN FOLDS. PICC TO PELON PATENT WITH DRESSING C/D/I. RECTAL TYLENOL GIVEN X1 FOR MAX TEMP 101.4; CURRENT TEMP 100.6. WILL REPORT TO AM RN WHEN AVAILABLE.
--- NOTE | 2021-02-15 07:42 | NUR ---
CARE OF PT ASSUMED AT 0700. PT SEDATED ON PRECEDEX AT 0.7MCG. PT SOMEWHAT DELIRIOUS. PT RESTLESS AND DISROBING. PT BARELY ABLE TO SPEAK OVER A WHISPER, PT UNABLE TO CLEAR SECRETIONS. PT ABLE TO FOLLOW COMMANDS. PT ABLE TO COUGH ON COMMAND, COUGH WEAK BUT ABLE TO COUGH UP LARGE AMT OF THICK YELLOW SECRETIONS. PRECEDEX DECREASED TO 0.4MCG TO WAKE PT UP. PT C/O NAUSEA, ZOFRAN GIVEN. PO MEDS HELD UNTIL NAUSEA IS IMPROVED AND PT AWAKE ENOUGH TO SAFELY SWALLOW PO MEDS. SATS 90-93% ON AIRVO AT 60L, 92% FIO2. LUNGS COARSE W RHONCHI TO UPPER LOBES. PT PLACED IN HIGH FOWLERS, WILL CONTINUE TO DECREASE SEDATION TOLERATED AND ENCOURAGE PULM TOILETING.
--- NOTE | 2021-02-15 12:46 | NUR ---
PT WAS UNABLE TO BE ROLLED DUE TO O2 STATS
--- NOTE | 2021-02-15 12:48 | NUR ---
PT WAS UNABLE TO BE COMPLETELY TURNED FOR SKIN CARE ON BACK. UNABLE TO DO COMPLETE BED CHANGE DUE TO INCREASE IN RESPIRATIONS AND O2 SATS. PT'S SKIN WAS RED ON SHINS AND WARM TO TOUCH. RN WAS NOTIFIED.
--- NOTE | 2021-02-15 13:10 | NUR ---
PT HAS HAD C/O NAUSEA, NO EMESIS TODAY. ZOFRAN, PHERGAN, AND REGLAN GIVEN. NG ORDERED TO BE PLACED TO LIS BUT PT HAS AIRVO IN. THIS DISCUSSED W DR KELLY. WILL HOLD NG FOR NOW AND MONITOR. PT HAS ERYTHEMA AND WARMTH TO BLE, DOPPLER ORDERED. KPHOS 30MMOL X 2 ORDERED
--- NOTE | 2021-02-15 14:38 | NUR ---
PRECEDEX DECREASED TO 0.5MCG. PT SLEEPING RESTLESSLY, PULLING AT GOWN. SPUTUM CLEANED FROM CHIN, PT SUCTIONED. KPHOS STARTED. PT'S UPDATED VIA PHONE. SATS ARE 94%.
--- NOTE | 2021-02-15 16:02 | NUR ---
GREEN SHEET PLACED UNDER PT. BUTTOCKS EXCORIATED, BARRIER CREAM PLACED SMEAR CLEANED. PT PLACED ON LEFT SIDE. ORAL CARE AND SUCTIONING PROVIDED. FIO2 DOWN TO 85%. PRECEDEX AT 0.5MCG.
--- NOTE | 2021-02-15 18:43 | NUR ---
review of pt with nursing. pt continues to struggle and is worsening. Will remain available to family for support. pt high risk for reintubation.
--- NOTE | 2021-02-15 19:13 | NUR ---
PRECEDEX DOWN TO 0.3MCG. PT ABLE TO BETTER CLEAR SECRETIONS, ABLE TO USE YANK. PT ABLE TO COMMUNICATE BACK PAIN /. FENT 25MCG GIVEN W GOOD EFFECT. PLAN FOR TOMORROW, TITRATE PRECEDEX OFF TOLERATED AND UP TO CJAIR USING LIFT, PT IS EXCITED ABOUT THIS PLAN. DIFLUCAN STARTED FOR VAGINAL YEAST AND YEAST TO ABD FOLDS. MOUTH W SEVERAL SORES FROM ETT, ORAL CARE PROVIDED Q2HRS TODAY.
[2021-02-16 04:24] LABS: Base Excess Venous 8.1 mmol/L; Bicarbonate Venous 29.7 mmol/L (24.0-30.0); PCO2 Venous 62.8 mmHg (38-42); pH Blood Venous 7.34 (7.34-7.37)
[2021-02-16 04:29] LABS: BASOPHILS ABSOLUTE AUTO 0.08 K/mm3 (0.00-0.23); BASOPHILS PERCENT AUTO 1 % (0-2); EOSINOPHILS PERCENT AUTO 3 % (0-6); Hematocrit 35.8 % (33.0-51.0); Hemoglobin 11.1 g/dL (11.5-16.0); IMMATURE GRAN ABSOLUTE AUTO 0.12 K/mm3 (0.00-0.10); IMMATURE GRAN PERCENT AUTO 1 % (0-1); LYMPHOCYTES ABSOLUTE AUTO 1.62 K/mm3 (0.84-5.20); LYMPHOCYTES PERCENT AUTO 11 % (21-46); MONOCYTES ABSOLUTE AUTO 1.23 K/mm3 (0.16-1.47); MONOCYTES PERCENT AUTO 8 % (4-13); Mean Corpuscular HGB 25.2 pg (26.0-34.0); Mean Corpuscular Volume 81 fL (80-100); Mean Platelet Volume 9.4 fL (9.1-12.4); NEUTROPHILS PERCENT AUTO 77 % (41-73); Platelet Count 415 K/mm3 (150-400); RDW Coefficient Variation 14.3 % (11.7-14.2); RDW Standard Deviation 41.7 fL (35.1-46.3); White Blood Cell Count 14.85 K/mm3 (4.00-11.30)
[2021-02-16 04:49] LABS: Anion Gap 5 mmol/L (6-16); Blood Urea Nitrogen 13 mg/dL (8-24); Bun/Creatinine Ratio 25.7 (12.0-20.0); CO2, Blood 31 mmol/L (21-32); Calcium, Blood 8.9 mg/dL (8.5-10.1); Chloride, Blood 104 mmol/L (98-108); Creatinine, Blood 0.51 mg/dL (0.40-1.00); Glomerular Filtration Rate >60 (60-); Glucose, Blood 126 mg/dL (70-99); Potassium, Blood 3.1 mmol/L (3.5-5.5); Sodium, Blood 140 mmol/L (136-145)
--- NOTE | 2021-02-16 07:00 | NUR ---
SUMMARY PATIENT SLEEPING OFF AND ON T/O NIGHT, AWAKENS EASILY TO STIMULI. PRECEDEX 0.3 T/O NIGHT. SPEECH DIFFICULT TO UNDERSTAND AT TIMES, MOSTLY ANSWERING QUESTIONS BY NODDING YES AND NO. INCONT OF LARGE LOOSE BROWN STOOL EARLY IN SHIFT. MEDICATED ONCE WITH ZOFRAN T/O NIGHT, VERONICA NAUSEA T/O NIGHT. MULTIPLE AREAS OF RAW REDNESS TO FOLDS AND PERIAREA. NYSTATIN CREAM AND DIFLUCAN ORDERED. LUNG SOUNDS COARSE T/O WITH MIN THICK SPUTUM. REMAINING ON AIRVO 60L FIO2 86%
--- NOTE | 2021-02-16 07:49 | NUR ---
AM NOTE... ASSUMED CARE OF PT AT 0700, PT IS A&Ox3 ABLE TO NOD HER HEAD APPROPRIATELY TO QUESTIONS, PT IS ABLE TO MOVE ALL EXTREMITES. PT IS ON AIRVO AT 60l AND 90% WITH O2 SATS >90%. L/S VERY COARSE IN THE UPPER LOBES AND DIM IN THE BASES. BT PRESENT AND HYPOACTIVE, PT DENIES ANY NAUSEA AT THIS TIME BUT IS C/O OF A HEAD ACHE. PT HAS TRACE EDEMA NOTED TO HER BLE. PISANO PATENT AND DRAINING DARK YELLOW URINE. BEDSIDE REPORT GIVEN TO LISETTE BROWN IN PCU FOR TRANSFER.
--- NOTE | 2021-02-16 08:25 | NUR ---
INITIAL ASSESSMENT: REPORT RECEIVED FROM PINKY CLARIFYING PLANT OPERATOR. PT WAS TRANSFERRED TO PCU 10 VIA BED AND SLID TO THE BED IN THE ROOM. PT IS DROWSY BUT ORIENTED-PRECEDEX GTT RESTARTED AT 0.2MCG/KG/HR. HRR, ST IN THE LOW 100S. LS DIM AND COARSE IN THE UPPER LOBES. PT HAS HARSH PC WITH WHITE/RIVERA SPUTUM, SHE IS ABLE TO USE YONKUR IND. PT IS ON ARIVO 60L FIO2 85%, BIOX 100%, ,OXYGEN TITRATED DOWN TO 65% FIO2-OXYGEN STAURATIONS ARE 98% WILL CONTINUE TO REASSESS AND TITRATED NEEDED. BT+. PPP. K+ 3.1 POTASSIUM RIDER STARTED. VSS. PT DENEIS OTHER NEEDS AT THIS TIME. CALL LIGHT IN REACH, WILL CONTINUE TO MONITOR.
--- NOTE | 2021-02-16 09:45 | NUR ---
PT WAS LYING ON HER RIGHT SIDE, SHE DID A GREAT JOB HELPING POSITION. THIS RN AND 2 RT GOT THE PATIENT TO THE RECLINERVIA PIVOT TRANSFER, PTS LEGS GAVE OUT, WE WERE ABLE TO GET HER TO THE CHAIR. SHE IS IN THE RECLINER. BIOX CONTINUES TO BE HIGH 90S. AIRVO TURNED DOWN TO 55L FIO2 55%. PT DENIES OTHER NEEDS. WILL CONTINUE TO MONITOR.
--- NOTE | 2021-02-16 12:30 | NUR ---
ASSESSMENT UNCHANGED. PT WAS ASSISTED BACK TO BED WITH THE LIFT AND REPOSITIONED TO HER LEFT SIDE. VSS. PT IS STILL SLIGHTLY FEBRILE 99-100 VIA PISANO TEMP PROBE, WILL MEDICATE WITH TYLENOL PER MD ORDERS. PT DENIES OTHER NEEDS AT THIS TIME. CALL LIGHT IN REACH, WILL CONTINUE TO MONITOR.
--- NOTE | 2021-02-16 16:30 | NUR ---
ASSESSMENT UNCHANGED FROM INITIAL ASSESSMENT. VSS. PTS HEART RATE RUNNING 120S-130S. ATIVAN GIVEN FOR AGIGTATION, ZOFRAN GIVEN FOR NAUSEA, AND TYLENOL GIVEN FOR PAIN AND SLIGHT FEVER. DISCUSSED TACHYCARDIA WITH DR. ZIMMERMAN, ORDER FOR METOPROLOL PRN. PT REPOSITIONED AND HEART RATE DECREASED DOWN INTO THE ONE TEENS. CALL LIGHT IN REACH. PT CONTINUES TO SELF SUCTION MODERATE AMOUNT OF WHITE SPUTUM.
[2021-02-16 17:34] LABS: Anion Gap 2 mmol/L (6-16); Blood Urea Nitrogen 16 mg/dL (8-24); Bun/Creatinine Ratio 41.2 (12.0-20.0); CO2, Blood 32 mmol/L (21-32); Calcium, Blood 9.4 mg/dL (8.5-10.1); Chloride, Blood 104 mmol/L (98-108); Creatinine, Blood 0.39 mg/dL (0.40-1.00); Glomerular Filtration Rate >60 (60-); Glucose, Blood 154 mg/dL (70-99); Sodium, Blood 138 mmol/L (136-145)
--- NOTE | 2021-02-16 18:48 | NUR ---
SUMMARY: PATIENT HAS DONE WELL THROUGH OUT THE SHIFT. WHEN SHE WAS TRANSFERRED OUT OF ICU SHE WAS ON AIRVO 60L 87% FIO2. PATIENT WAS GRADUALLY TITRATED DOWN AND SWITCHED FROM THE ARIVO TO THE HIGH FLOW NASAL CANNULA, SHE IS CURRENTLY ON 7L, OXYGEN SATURATIONS AT 94%. PATIENT INITIALLY CAME OVER ON PRECEDEX, THIS WAS TITRATED DOWN AND TURNED OFF, PT HAS BEEN COMFORTABLE WITH ATIVAN NEEDED FOR ANXIETY AND FENTANYL FOR PAIN. SHE WAS ABLE TO GET OUT OF THE CHAIR FOR ABOUT TWO HOURS TODAY, TOLERATED IT WELL. K+ 3.1 THIS AM, PT RECIEVED 60MEQ KCL IV, K+ AT 1700 WAS 4.0. PT CONTINUES TO BE NPO, I TALKED WITH DR. ZIMMERMAN ABOUT SPEECH THERAPY EVAL, HE WOULD LIKE TO WAIT THE PATIENT WAS ON HIGH FLOW OXYGEN WHEN WE TALKED-WILL REEVALUATE TOMORROW, CLINIMIX WAS STARTED AT 50 ML/HR IN THE MEAN TIME. NO ACUTE CHANGES THIS SHIFT. WILL REPORT TO ONCOMING RN.
[2021-02-17 04:25] LABS: BASOPHILS ABSOLUTE AUTO 0.08 K/mm3 (0.00-0.23); BASOPHILS PERCENT AUTO 1 % (0-2); EOSINOPHILS PERCENT AUTO 2 % (0-6); Hematocrit 37.7 % (33.0-51.0); Hemoglobin 11.6 g/dL (11.5-16.0); IMMATURE GRAN ABSOLUTE AUTO 0.11 K/mm3 (0.00-0.10); IMMATURE GRAN PERCENT AUTO 1 % (0-1); LYMPHOCYTES ABSOLUTE AUTO 1.82 K/mm3 (0.84-5.20); LYMPHOCYTES PERCENT AUTO 14 % (21-46); MONOCYTES ABSOLUTE AUTO 1.18 K/mm3 (0.16-1.47); MONOCYTES PERCENT AUTO 9 % (4-13); Mean Corpuscular HGB 25.1 pg (26.0-34.0); Mean Corpuscular HGB Conc 30.8 g/dL (31.5-36.5); Mean Corpuscular Volume 82 fL (80-100); Mean Platelet Volume 9.4 fL (9.1-12.4); NEUTROPHILS ABSOLUTE AUTO 10.11 K/mm3 (1.96-9.15); NEUTROPHILS PERCENT AUTO 75 % (41-73); Platelet Count 501 K/mm3 (150-400); RDW Coefficient Variation 14.5 % (11.7-14.2); RDW Standard Deviation 42.3 fL (35.1-46.3); Red Blood Cell Count 4.62 M/mm3 (3.80-5.20)
[2021-02-17 04:45] LABS: Anion Gap 3 mmol/L (6-16); Blood Urea Nitrogen 18 mg/dL (8-24); Bun/Creatinine Ratio 43.7 (12.0-20.0); CO2, Blood 33 mmol/L (21-32); Calcium, Blood 8.8 mg/dL (8.5-10.1); Chloride, Blood 104 mmol/L (98-108); Creatinine, Blood 0.41 mg/dL (0.40-1.00); Glomerular Filtration Rate >60 (60-); Glucose, Blood 143 mg/dL (70-99); Potassium, Blood 3.2 mmol/L (3.5-5.5); Sodium, Blood 140 mmol/L (136-145)
--- NOTE | 2021-02-17 06:45 | NUR ---
NURSE SCHOOL SUMMARY PT WAS PLACED ON 3L NC AT START OF SHIFT AND MAINTAINED O2 SATS >93% ALL SHIFT. PT AXO X4 BUT DOES NOT COMMUNICATE VERBALLY EXCEPT FOR SHORT SENTANCES "YES OR NO". TELE SHOWING ST 110'S ALL SHIFT, LOPRESSOR PRN W MINIMAL EFFECT. BP ELEVATED THIS SHIFT W SBP IN THE 170'S. PT AFEBRILE THIS SHIFT W PEAK TEMP 99.5. WILL REPORT TO ONCOMING RN.
--- NOTE | 2021-02-17 09:00 | NUR ---
AM NOTE... ASSUMED CARE OF PT AT 0700, PT IS A&Ox4 SHE IS ABLE TO NOD HER HEAD APPROPRIATELY TO QUESTIONS BUT HER VOICE IS WEAK AND HOARSE AND IS UNABLE TO SPEAK VERY MUCH. PT IS ON 2L NC WITH O2 SATS >90% L/S CLEAR IN THE UPPER LOBES WITH COARSENESS IN THE LOWER LOBES. PT HAS AN OCC HARSH COUGH WITH MODERATE AMOUNT OF THICK YELLOW SPUTUM, PT IS ABLE TO USE THE SUCTION MOST OF THE TIME TO HELP REMOVE THE SPUTUM FROM HER MOUTH. BT PRESENT AND HYPOACTIVE, PT IS CURRENTLY NPO PENDING A SPEECH EVAL. PT IS WORKIN WITH PT/OT TO IMPROVE HER MOBILITY. PT HAS TRACE EDEMA NOTED TO HER BLE, PT ALSO HAS A BODY WIDE YEAST RASH WORSE UNDER HER BREASTS AND GROIN AREA, NYSTAIN CREAM IS ORDERED WELL DIFLUCAN IV. WILL CONTINUE TO MONITOR.
--- NOTE | 2021-02-17 10:44 | NUR ---
PT UDPATE... PT WAS SEEN BY SPEECH, NOW HAS A DIET ORDER WITH SUPERVISON AND FEEDING ASSIST. MEDS WHOLE IN APPLE SAUCE. WILL CONTINUE TO MONITOR.
--- NOTE | 2021-02-17 15:37 | NUR ---
AT 1520 THIS NURSE WAS ROUNDING WHEN HEART RATE WAS NOTED TO BE 135 ON THE PULSE OXIMETER. THIS NURSE CALLED ASSEMBLYMAN OR WOMAN TO VERIFY AND ASSEMBLYMAN OR WOMAN STATED THAT THE HEART RATE INCREASED AT "ABOUT 1300" AND THAT SHE WAS AT LUNCH AT THE TIME. THIS NURSE DID NOT GET A CALL NOTIFYING OF TACHYCARDIA. PT MEDICATED PER EMAR FOR TACHYCARDIA AT 1532, SEE EMAR. HR NOW AT 105 WITH BP OF 132/82.\\ BRENT OWENS RN NOTIFIED.
--- NOTE | 2021-02-17 18:22 | NUR ---
SHIFT SUMMARY PT AXO, PLEASANT AND COOPERATIVE WITH CARE. TRANSFER FROM PCU THIS SHIFT. 93% ON 2L VIA NC. IV PATENT AND INFUSING CLINAMIX PER EMAR. PICC LINE INFUSING PER EMAR THOUGH DIFFICULT TO FLUSH. WILL HAVE PICC NURSE ASSESS. CHARGE NURSE AWARE. PULSE 113 AT THIS TIME, SEE PRIOR NOTE ABOUT TACHYCARDIA. PISANO PATENT AND DRAINING. PT TOLERATING PO INTAKE AT THIS TIME. ASPIRATION PRECAUTIONS IN PLACE WELL, SEE ORDERS. PT MEDICATED FOR HEADACHE PER EMAR AND GIVEN ICE PACK. PT ALSO MEDICATED FOR NAUSEA. BED IN LOW POSITION, CALL LIGHT WITHIN REACH. ON TELE, SINUS TACH.
--- NOTE | 2021-02-17 19:20 | NUR ---
ASSUMED CARE RECEIVED REPORT FROM KEVIN DIAZ. PT RESTING, IN NAD. NO ACUTE NEEDS ASSESSED AT THIS TIME. CALL LIGHT, POSSESSIONS IN REACH, BED IN LOW AND LOCKED POSITION WITH ALARMS ON. [facility].
[2021-02-18 05:45] LABS: Anion Gap 5 mmol/L (6-16); Blood Urea Nitrogen 21 mg/dL (8-24); Bun/Creatinine Ratio 44.8 (12.0-20.0); CO2, Blood 33 mmol/L (21-32); Calcium, Blood 8.7 mg/dL (8.5-10.1); Chloride, Blood 101 mmol/L (98-108); Creatinine, Blood 0.47 mg/dL (0.40-1.00); Glomerular Filtration Rate >60 (60-); Glucose, Blood 136 mg/dL (70-99); Potassium, Blood 3.5 mmol/L (3.5-5.5); Sodium, Blood 139 mmol/L (136-145)
--- NOTE | 2021-02-18 07:00 | NUR ---
SUPERVISOR CAPACITOR PROCESSING SUMMARY PT RESTING, IN NAD. APPEARED TO SLEEP WELL T/O NIGHT. VS REVIEWED,WNL; O2 SATS WNL ON 5L/NC. PT MOTIVATED, EAGER TO PARTICIPATE IN CARES AND BE ABLE TO AMBULATE SELF TO BSC OR CHAIR. ENCOURAGED Pt TO WORK WITH PT TODAY. NO OTHER ACUTE CONCERNS TO REPORT OVERNIGHT. ATTEMPTING TO SIT UP AT THIS TIME, BED ALARM SOUNDING; SUPERVISOR ROSE GRADING AT THE BEDSIDE. REPORT GIVEN TO KEVIN REGAN.
[2021-02-18] MEDS ORDERED: Acetaminophen325 M1 PO (16:43)
[2021-02-18] MEDS ORDERED: AMLO10 PO (16:43)
[2021-02-18] MEDS ORDERED: ROBITUSSIN DM PO (16:46)
[2021-02-18] MEDS ORDERED: GUAI600T33 PO (16:46)
[2021-02-18] MEDS ORDERED: IPRAT-ALBUT 0.5-3 ML INH (16:48)
[2021-02-18] MEDS ORDERED: DULCOLAX400 MG/5 M PO (16:49)
[2021-02-18] MEDS ORDERED: METO50 PO (16:49)
[2021-02-18] MEDS ORDERED: NYSTOP15 GM TOP (16:50)
[2021-02-18] MEDS ORDERED: VISBIOME 112.51 EACH PO (16:50)
[2021-02-18] MEDS ORDERED: THERA-D2000 UNIT PO (16:51)
--- NOTE | 2021-02-18 18:26 | NUR ---
DISCHARGE PT DISCHARGED TO . FOR REHAB, TRANSPORTED BY [facility] VIA W/C AT 1736. REPORT CALLED TO SKYLER BROWN AT 1748. PICC PULLED BY NEGIN KUNZ RN, PT TRANSPORTED WITH NORRIS IN PLACE, PATENT AND DRAINING.
== END 2021-02-18 17:36 | DRG 207 ==
LOC: ER 10:01 → ICUE 13:25 → MEDS 13:25 → ICUE 02-03 19:22 → PCU 02-16 07:58 → MEDS 02-17 11:51
PROVIDERS: Family Medicine; Internal Medicine; Internal Medicine Critical Care Medicine; Nurse Practitioner Acute Care; Pharmacist; Student in an Organized Health Care Education/Training Program; ADMIT Internal Medicine
PROC: 3E0333Z Introduction of Anti-inflammatory into Peripheral Vein, Percutaneous Approach (ICD-10-PCS; 2021-02-01)
PROC: 8E0ZXY6 Isolation (ICD-10-PCS; 2021-02-01)
PROC: XW033E5 Introduction of Remdesivir Anti-infective into Peripheral Vein, Percutaneous Approach, New Technology Group 5 (ICD-10-PCS; 2021-02-01)
PROC: 5A0945A Assistance with Respiratory Ventilation, 24-96 Consecutive Hours, High Flow/Velocity Cannula (ICD-10-PCS; 2021-02-01)
PROC: 5A1955Z Respiratory Ventilation, Greater than 96 Consecutive Hours (ICD-10-PCS; principal; 2021-02-04)
PROC: 5A09357 Assistance with Respiratory Ventilation, Less than 24 Consecutive Hours, Continuous Positive Airway Pressure (ICD-10-PCS; 2021-02-04)
PROC: 0BH18EZ Insertion of Endotracheal Airway into Trachea, Via Natural or Artificial Opening Endoscopic (ICD-10-PCS; 2021-02-04)
PROC: 02HV33Z Insertion of Infusion Device into Superior Vena Cava, Percutaneous Approach (ICD-10-PCS; 2021-02-04)
DX: U07.1 COVID-19 (principal); J12.82 Pneumonia due to coronavirus disease 2019; J96.01 Acute respiratory failure with hypoxia; J69.0 Pneumonitis due to inhalation of food and vomit; A41.89 Other specified sepsis; Z68.43 Body mass index [BMI] 50.0-59.9, adult; J45.901 Unspecified asthma with (acute) exacerbation; E86.0 Dehydration; G43.909 Migraine, unspecified, not intractable, without status migrainosus; E87.6 Hypokalemia; R19.7 Diarrhea, unspecified; I10 Essential (primary) hypertension; E83.39 Other disorders of phosphorus metabolism; F41.9 Anxiety disorder, unspecified; E66.01 Morbid (severe) obesity due to excess calories; Z88.0 Allergy status to penicillin; Z88.2 Allergy status to sulfonamides; Z88.1 Allergy status to other antibiotic agents; Z90.49 Acquired absence of other specified parts of digestive tract; Z71.3 Dietary counseling and surveillance; Z78.1 Physical restraint status
CPT/HCPCS: 31500; 36415; 36569; 36600; 51702; 71045; 71260; 80048; 80053; 80069; 80202; 81001; 82330; 82728; 82803; 82947; 83615; 83735; 83880; 84100; 84145; 84484; 84703; 85025; 85379; 85610; 85730; 86140; 87070; 87077; 87205; 92526; 92610; 93005; 93010; 93970; 94002; 94003; 94640; 94660; 94760; 94762; 96361; 96374; 96375; 97110; 97163; 99285-25; A9270; C1751; C1769; C9113; J0330; J0692; J1100; J1450; J1650; J1885; J1940; J1956; J2060; J2405; J2550; J2704; J2765; J3010; J3370; J3480; J7030; J7050; J7060; J7120; Q9967

== ENCOUNTER → 2021-03-31 | Outpatient (CLI) | payer OTHER ==
[~2021-03-31] MED LIST changes: +AMLO10 PO; +Acetaminophen325 M1 PO; +DULCOLAX400 MG/5 M PO; +GUAI600T33 PO; +Guaifenesin Wit10 ML PO; +IBUP800 PO; +IPRAT-ALBUT 0.5-3 ML INH; +METO50 PO; +NYSTOP15 GM TOP; +ROBITUSSIN DM PO; +THERA-D2000 UNIT PO; +VISBIOME 112.51 EACH PO; +Ventolin/Prove6.7 GM INH
[2021-03-31 16:21] LABS: Influenza A Negative (NEGATIVE); Influenza B Negative (NEGATIVE)
== END | disposition home or self-care (01) ==
LOC: LAB 13:15 → LAB SHORT 13:15
PROVIDERS: Physician Assistant
DX: R05.9 Cough, unspecified (principal); R50.9 Fever, unspecified
CPT/HCPCS: 87804

== ENCOUNTER → 2023-03-28 | Outpatient (CLI) | payer OTHER | LOC: LAB SHORT 15:39 → LAB 15:39 | DX: R35.0 Frequency of micturition (principal) | CPT/HCPCS: 87086 ==

== ENCOUNTER → 2023-04-21 | Outpatient (CLI) | payer OTHER | END | disposition home or self-care (01) | LOC: LAB SHORT 15:33 → LAB 15:33 | DX: R30.0 Dysuria (principal) | CPT/HCPCS: 87086 ==

== ENCOUNTER → 2024-02-08 | Outpatient (CLI) | payer OTHER ==
[~2024-02-08] MED LIST changes: +FLUTICASONE PRO12 G1 INH; +JARDIANCE10 MG; +JARDIANCE10 MG PO; +NAPROXEN500 MG PO; +OXYC5 PO; +OZEMPIC1 MG/0.72 SC; +PRAVASTATIN SOD20 MG PO
[2024-02-14 17:01] LABS: HPV HIGH RISK BY TMA Not Detected; HPV SOURCE Vaginal
== END ==
LOC: LAB SHORT 18:00 → LAB 18:00
PROVIDERS: Obstetrics & Gynecology
DX: Z12.4 Encounter for screening for malignant neoplasm of cervix (principal)
CPT/HCPCS: 87624; G0123

== ENCOUNTER 2024-03-10 09:59 | Emergency (ER) | payer OTHER ==
[~2024-03-10] VITALS: Ht 165.1 cm; Wt 119.8 kg
[2024-03-10] MEDS ORDERED: Morphine Sulfate 4 MG/1 ML Injection IV ONE (10:55)
[2024-03-10] MEDS ORDERED: NS 1,000 ML IV SCH (10:55)
[2024-03-10] MEDS ORDERED: Ketorolac Tromethamine 30mg Vial IV ONE (10:55)
[2024-03-10] MEDS ORDERED: Metoclopramide HCl 5MG / ML 2ML Vial IV ONE (10:55)
[2024-03-10 10:56] LABS: Hematocrit 42.5 % (33.0-51.0); Mean Corpuscular HGB 25.5 pg (26.0-34.0); Mean Corpuscular HGB Conc 32.9 g/dL (31.5-36.5); Mean Corpuscular Volume 78 fL (80-100); Platelet Count 325 K/mm3 (150-400); RDW Coefficient Variation 14.2 % (11.7-14.2); RDW Standard Deviation 39.8 fL (35.1-46.3); Red Blood Cell Count 5.48 M/mm3 (3.80-5.20)
[2024-03-10 11:14] LABS: Albumin, Blood 2.8 g/dL (3.4-5.0); Albumin/Globulin Ratio 0.5 (0.8-1.8); Bilirubin, Total 0.7 mg/dL (0.1-1.0); Bun/Creatinine Ratio 9.5 (12.0-20.0); Calcium, Blood 8.7 mg/dL (8.5-10.1); Creatinine, Blood 0.84 mg/dL (0.40-1.00); Globulin, Blood 5.3 g/dL (2.2-4.0); Potassium, Blood 3.1 mmol/L (3.5-5.5); Total Protein, Blood 8.1 g/dL (6.4-8.2)
[2024-03-10 11:46] LABS: International Normalized Ratio 1.11; Prothrombin Time Results 11.8 Sec (9.7-11.5)
[2024-03-10 11:48] LABS: BAND PERCENT MAN 5 % (0-8); BASOPHILS ABSOLUTE MAN 0.13 K/mm3 (0.00-0.23); BASOPHILS PERCENT MAN 1 % (0-2); EOSINOPHILS ABSOLUTE MAN 0.13 K/mm3 (0.00-0.68); EOSINOPHILS PERCENT MAN 1 % (0-6); LYMPHOCYTES % ATYPICAL MANUAL 4 % (0-0); LYMPHOCYTES PERCENT MAN 52 % (21-46); MONOCYTES ABSOLUTE MAN 0.93 K/mm3 (0.16-1.47); MONOCYTES PERCENT MAN 7 % (4-13); NEUTROPHILS ABSOLUTE MAN 4.69 K/mm3 (1.96-9.15); SEG NEUTROPHILS PERCENT MAN 30 % (41-73); TOTAL CELLS COUNTED 100
[2024-03-10] MEDS ORDERED: DULO30 PO (13:01)
[2024-03-10] MEDS ORDERED: Potassium Chloride 20 MEQ/15 ML UDC PO ONE (13:10)
[2024-03-10] MEDS ORDERED: METO10 PO (13:19)
[2024-03-10] MEDS ORDERED: PROM12.5S PR (13:19)
[2024-03-10] MEDS ORDERED: ONDA4ODT MM (13:19)
[2024-03-10] MEDS ORDERED: HYDR1TAB94 PO (13:19)
[2024-03-10 13:30] VITALS: BP 107/67
[2024-03-13 21:59] LABS: EBV QNT BY NAAT, PL LOG IU/ML Not Detected; EBV QNT BY NAAT, PLASMA INTERP Not Detected (Not Detected); EBV QNT BY NAAT, PLASMA IU/ML Not Detected
== END 2024-03-10 13:35 | disposition home or self-care (01) ==
LOC: ER 09:59
PROVIDERS: Student in an Organized Health Care Education/Training Program
DX: D73.5 Infarction of spleen (principal); B34.9 Viral infection, unspecified; R16.1 Splenomegaly, not elsewhere classified; R74.01 Elevation of levels of liver transaminase levels; J45.909 Unspecified asthma, uncomplicated; E11.9 Type 2 diabetes mellitus without complications; G43.909 Migraine, unspecified, not intractable, without status migrainosus; Z79.51 Long term (current) use of inhaled steroids; Z79.899 Other long term (current) drug therapy; Z88.0 Allergy status to penicillin; Z88.1 Allergy status to other antibiotic agents; Z88.2 Allergy status to sulfonamides
CPT/HCPCS: 74174; 80053; 83690; 83735; 85025; 85610; 86308; 87799; 96361; 96374-59; 96375-59; 99284-25; A9270; J1885; J2270; J2765; J7030; Q9967

== ENCOUNTER → 2024-04-17 | Outpatient (CLI) | payer OTHER ==
[~2024-04-17] MED LIST changes: +DULO30 PO; +HYDR1TAB94 PO; +METO10 PO; +ONDA4ODT MM; +PROM12.5S PR
[2024-04-17 20:10] LABS: Percent Saturation 11.9 % (15.0-50.0)
== END | disposition home or self-care (01) ==
LOC: LAB SHORT 15:00 → LAB 15:00
PROVIDERS: Internal Medicine Hematology & Oncology
DX: E61.1 Iron deficiency (principal)
CPT/HCPCS: 82728; 83540; 83550

== ENCOUNTER 2024-06-13 09:56 | Day surgery (SDC) | payer OTHER ==
[~2024-06-13] VITALS: Ht 167.6 cm; Wt 122.3 kg
[2024-06-13] VITALS (13 sets, daily range): BP systolic 111–138; BP diastolic 68–91
[~2024-06-13 09:56] MED LIST changes: +ALBU90OI INH; +HYDPAM25 PO
[2024-06-13] MEDS ORDERED: Clindamycin 900mg in D5W 50ML 50 ML IV SCH (10:35)
[2024-06-13] MEDS ORDERED: Lactated Ringer's 1,000 ML IV SCH ×2 (10:35→14:50)
[2024-06-13] MEDS ORDERED: Gentamicin Sulfate 100 MG in NS 100 ML IV SCH (10:37)
--- NOTE | 2024-06-13 11:05 | NUR ---
Ambulatory in Day Surgery History, Chart, Medications and Allergies reviewed before start of procedure. Pre-Op teaching done. Pt verbalizes understanding. Patient States Post-Procedure ride home has been arranged.
[2024-06-13] MEDS ORDERED: propofoL 20 ML IV ONE (11:55)
[2024-06-13] MEDS ORDERED: FentaNYL Citrate 50 MCG/ML 2 ML Injection ONE ×2 (11:55→15:07)
[2024-06-13] MEDS ORDERED: Bupivacaine 0.5% HCl 5 MG/ML 30MLVIAL ONE (12:28)
[2024-06-13] MEDS ORDERED: Dexamethasone Sod Phos 10 MG/ML 1ML VIAL ONE (12:41)
[2024-06-13] MEDS ORDERED: Ondansetron HCl 2 MG / ML 2ML Vial ONE (12:41)
[2024-06-13] MEDS ORDERED: Rocuronium Bromide 10 MG/ML 5ML Injection IV ONE (12:41)
[2024-06-13] MEDS ORDERED: HydrOXYzine Pamoate 25 MG Cap PO PRN (12:55)
[2024-06-13] MEDS ORDERED: DiphenhydrAMINE HCl 50 MG/ML 1ML Vial ONE (12:57)
[2024-06-13] MEDS ORDERED: Albuterol HFA200 ACT/6.7 GM INH INH PRN (13:00)
[2024-06-13] MEDS ORDERED: Gentamicin Sulfate 100 MG in NS 100 ML IV ONE (13:07)
[2024-06-13] MEDS ORDERED: Ketamine HCl 100 MG / ML 5ML Vial ONE (13:17)
[2024-06-13] MEDS ORDERED: Sugammadex Sodium 200 MG/2ML SDV (100 MG/ML) ONE (14:35)
[2024-06-13] MEDS ORDERED: Ondansetron 4 MG TAB PO PRN (14:50)
[2024-06-13] MEDS ORDERED: Naloxone HCl 0.4MG / ML 1ML Vial IV PRN (14:50)
[2024-06-13] MEDS ORDERED: FLU VACC TS2024-25(6MOS UP)/PF 45 MCG/0.5 ML SYRINGE IM SCH (14:50)
[2024-06-13] MEDS ORDERED: HYDROmorphone HCl/Pf 1MG SYR IV PRN (14:50)
[2024-06-13] MEDS ORDERED: Ibuprofen 400 MG Tab PO PRN (14:50)
[2024-06-13] MEDS ORDERED: Metoclopramide HCl 10 MG Tab PO PRN (14:50)
[2024-06-13] MEDS ORDERED: Metoclopramide HCl 5MG / ML 2ML Vial IV PRN (14:50)
[2024-06-13] MEDS ORDERED: DiphenhydrAMINE HCL 25 MG Cap PO PRN (14:55)
[2024-06-13] MEDS ORDERED: Simethicone 80 MG Chew PO PRN (14:55)
[2024-06-13] MEDS ORDERED: Acetaminophen 500 MG Tab PO PRN (14:55)
[2024-06-13] MEDS ORDERED: OxyCODONE HCL 5 MG TAB PO PRN (14:55)
[2024-06-13] MEDS ORDERED: Ondansetron HCl 2 MG / ML 2ML Vial IV PRN (14:55)
[2024-06-13] MEDS ORDERED: Ketorolac Tromethamine 30mg Vial IV PRN (15:00)
[2024-06-13] MEDS ORDERED: Ketorolac Tromethamine 30mg Vial ONE (15:10)
[2024-06-13] MEDS ORDERED: HYDROmorphone HCl/Pf 1MG SYR ONE (15:27)
[2024-06-13] MEDS ORDERED: Estradiol 0.1 MG/24 HR Patch TOP SCH (16:00)
--- NOTE | 2024-06-13 16:19 | NUR ---
ARRIVAL TO UNIT AFTER RECEIVING REPORT FROM LAPPING MACHINE TENDER, PATIENT TRANSFERRED TO UNIT AT APPROX 1640. PATIENT ALERT AND ORIENTED X4, COMMUNICATING NEEDS EFFECTIVELY. TRANSFERRED FROM GURNEY TO BED WITH SLIDER SHEET. VSS. TITRATED FROM 3L VIA NC TO ROOM AIR, SATs >90%. S/P LAP HYSTERECTOMY WITH X4 LAP SITES C/D/I. TOLERATING SIPS OF WATER AND SMALL SNACKS. REPORTING 8/10 ABD PAIN - MEDICATED PER EMAR. KPAD IN PLACE. CALL LIGHT IN REACH. AT BEDSIDE
--- NOTE | 2024-06-13 17:33 | NUR ---
SHIFT SUMMARY NO ACUTE EVENTS SINCE PREVIOUS DOCUMENTATION. PATIENT REMAINS ALERT AND ORIENTED X4. COMMUNICATING NEEDS EFFECTIVELY. VSS. S/P LAP HYSTER - X4 INCISION SITES C/D/I. TOLERATING PO INTAKE. PAIN IMPROVED PER EMAR AND WITH KPAD. SCANT DRAINAGE ON TORI PAD. UP TO RESTROOM WITH SBA TO VOID. X1 SMALL VOID. TOLERATING PO INTAKE. CALL LIGHT IN REACH. WILL CONTINUE TO MONITOR AND REPORT TO ONCOMING RN.
[2024-06-13] MEDS ORDERED: ACET500 PO (18:16)
[2024-06-13] MEDS ORDERED: OXAYDO5 M1 PO (18:17)
[2024-06-13] MEDS ORDERED: IBUP800 PO (18:17)
--- NOTE | 2024-06-13 18:30 | NUR ---
DISCHARGE NOTE SEE PREVIOUS DOCUMENTATION. PATIENT REQUESTING TO DC HOME - DC HOME ORDER IN PLACE BY MD. MARTE. PAIN TOLERABLE WITH PRESCRIBED THERAPY. VOIDING - X2 VOIDS POST OP IN TOTAL. DC EDUCATION PROVIDED - PATIENT AND HER STATE UNDERSTANDING. IV REMOVED. PATIENT TRANSFERRED TO PERSONAL VEHICLE AT APPROX 1830 PER WHEELCHAIR. PERSONAL BELONGINGS WITH PATIENT.
[2024-06-14] MEDS ORDERED: DULoxetine HCL 30 MG Cap DR PO SCH (09:00)
== END 2024-06-13 18:26 | disposition home or self-care (01) ==
LOC: ORSCMMR 09:56 → ORD 11:30 → ORSCMMR 11:30 → ORD 11:45 → SURS 15:38 → ORSCMMR 18:26
PROVIDERS: Obstetrics & Gynecology
PROC: 0UT7FZZ Resection of Bilateral Fallopian Tubes, Via Natural or Artificial Opening With Percutaneous Endoscopic Assistance (ICD-10-PCS; principal; 2024-06-13 11:30)
PROC: 0UT9FZZ Resection of Uterus, Via Natural or Artificial Opening With Percutaneous Endoscopic Assistance (ICD-10-PCS; principal; 2024-06-13 11:30)
PROC: 0UT2FZZ Resection of Bilateral Ovaries, Via Natural or Artificial Opening With Percutaneous Endoscopic Assistance (ICD-10-PCS; principal; 2024-06-13 11:30)
DX: N94.6 Dysmenorrhea, unspecified (principal); D25.2 Subserosal leiomyoma of uterus; N83.12 Corpus luteum cyst of left ovary; N73.6 Female pelvic peritoneal adhesions (postinfective); E11.9 Type 2 diabetes mellitus without complications; J45.909 Unspecified asthma, uncomplicated; E66.01 Morbid (severe) obesity due to excess calories; Z68.41 Body mass index [BMI] 40.0-44.9, adult; Z79.899 Other long term (current) drug therapy; Z79.85 Long-term (current) use of injectable non-insulin antidiabetic drugs
CPT/HCPCS: 88307; A9270; J1100; J1171; J1200; J1580; J1885; J2405; J2704; J3010; J7120

== ENCOUNTER → 2025-04-10 | Outpatient (CLI) | payer OTHER ==
[~2025-04-10] MED LIST changes: +ACET500 PO; +OXAYDO5 M1 PO
[2025-04-10 21:27] LABS: Influenza A/2009-H1 Not Detected (NOT DETECT); SARS-Cov-2 (COVID-19), BioFire Not Detected (NOT DETECT)
== END ==
LOC: LAB 17:19 → LAB SHORT 17:19
PROVIDERS: Nurse Practitioner Family
DX: J02.9 Acute pharyngitis, unspecified (principal); R11.2 Nausea with vomiting, unspecified
CPT/HCPCS: 0202U